=== PATIENT | male | born 1940 | race Two or more races ===

== ENCOUNTER 2024-07-31 21:58 | Inpatient (IN) | payer OTHER, MEDICAID ==
[~2024-07-31] VITALS: Ht 175.3 cm; Wt 69.8 kg
[2024-07-31] MEDS: SODIUM CHLORIDE 0.9% 1,000 ML IV ONE (01:00)
[2024-07-31 22:52] LABS: Basophils # (auto) 0 10 ^3/uL (0-0.2); Basophils % (auto) 0.5 % (0.0-2.0); Eosinophils # (auto) 0.4 10 ^3/uL (0-0.8); Eosinophils % (auto) 4.6 % (0.0-7.0); Hematocrit 37.9 % (41.0-53.0); Hemoglobin 13.1 g/dL (13.5-17.5); Lymphocytes # (auto) 2.4 10 ^3/uL (0.4-5.4); Lymphocytes % (auto) 31.6 % (10.0-50.0); Mean Corpuscular Hemoglobin 33.3 pg (28.0-32.0); Mean Corpuscular Hgb Conc. 34.6 g/dL (32.0-36.0); Mean Corpuscular Volume 96.3 fL (80.0-100.0); Monocytes # (auto) 0.5 10 ^3/uL (0-1.3); Neutrophils # (auto) 4.4 10 ^3/uL (1.6-8.6); Neutrophils % (auto) 57.3 % (37.0-80.0); Platelet Count (auto) 171 10^3/uL (140-450); Red Blood Cells 3.94 10^6/uL (4.5-5.90); Red Cell Distribution Width 13.6 % (11.8-14.3); White Blood Cell 7.7 10^3/uL (4.4-10.8)
[2024-07-31 23:01] LABS: Chloride 109 mmol/L (98-107); Potassium 4.7 mmol/L (3.5-5.1); Sodium 136 mmol/L (136-145)
[2024-07-31 23:02] LABS: Anion Gap 15 (5-15); Calcium 9.9 mg/dL (8.7-10.4); Carbon Dioxide 12 mmol/L (20-30)
[2024-07-31 23:07] LABS: BUN/Creatinine Ratio 32.6 (10.0-20.0); Blood Urea Nitrogen 42 mg/dL (9-23); Glucose 103 mg/dL (74-106)
[2024-07-31 23:20] LABS: Lactic Acid w/Reflex 5.7 mmol/L (0.4-2.0)
[2024-08-01] MEDS: SODIUM CHLORIDE 0.9% 1,000 ML IV ONE (04:01)
[2024-08-01] MEDS: VANCOMYCIN 1GM/200ML 200 ML IV ONE (04:02)
[2024-08-01 04:27] LABS: Urine Bacteria None Seen /hpf (None Seen)
[2024-08-01 04:38] LABS: Urine Blood Negative /uL (Negative); Urine Clarity Clear (Clear); Urine Color Light-Yellow (Yellow); Urine Protein, UAD Negative (Negative); Urine Specific Gravity 1.018 (1.001-1.035); Urine Urobilinogen Normal (Negative); Urine WBC 1 /hpf (0 - 3)
[2024-08-01 06:29] VITALS: PULSE 89; RESP 16; O2SAT 96
[2024-08-01] MEDS ORDERED: DEXTROSE (50%) 50ML SYRG IV PRN (07:45)
[2024-08-01] MEDS ORDERED: ACETAMINOPHEN 325 MG TAB PO PRN (07:45)
[2024-08-01] MEDS ORDERED: ONDANSETRON HCL 4 MG/2 ML VIAL IV PRN (07:45)
[2024-08-01] MEDS: cefTRIAXone 1GM/50ML D5W 50 ML IV SCH (09:00)
[2024-08-01 10:00] VITALS: PULSE 82; RESP 18; O2SAT 95
[2024-08-01] MEDS: MEMANTINE HCL 5 MG TAB PO SCH (10:00)
[2024-08-01] MEDS: ENOXAPARIN SOD 40 MG/0.4 ML SYRINGE SC SCH (10:00)
[2024-08-01] MEDS: InsuLIN REG 1unit/0.01ml Soln (100units/ml) SC SCH (11:30)
[2024-08-01] MEDS: ACCU-CHEK COMFORT CURVE STRIP VI SCH (12:10)
[2024-08-01] MEDS: LACTATED RINGER'S 1,000 ML IV SCH (16:52)
[2024-08-01] MEDS: TAMSULOSIN HYDROCHLORIDE 0.4 MG CAP PO SCH (18:06)
[2024-08-01 19:40] VITALS: PULSE 76; RESP 18; O2SAT 98
[2024-08-01] MEDS: DONEPEZIL HYDROCHLORIDE 5 MG TAB PO SCH (22:12)
[2024-08-01] MEDS: ATORVASTATIN 20 MG TAB PO SCH (22:12)
[2024-08-02 06:03] LABS: Basophils # (auto) 0 10 ^3/uL (0-0.2); Basophils % (auto) 0.6 % (0.0-2.0); Eosinophils # (auto) 0.5 10 ^3/uL (0-0.8); Eosinophils % (auto) 6.6 % (0.0-7.0); Hematocrit 35.9 % (41.0-53.0); Hemoglobin 12.8 g/dL (13.5-17.5); Lymphocytes # (auto) 2.3 10 ^3/uL (0.4-5.4); Lymphocytes % (auto) 30.5 % (10.0-50.0); Mean Corpuscular Hemoglobin 33.6 pg (28.0-32.0); Mean Corpuscular Hgb Conc. 35.5 g/dL (32.0-36.0); Mean Corpuscular Volume 94.7 fL (80.0-100.0); Monocytes # (auto) 0.4 10 ^3/uL (0-1.3); Monocytes % (auto) 5.7 % (0.0-12.0); Neutrophils # (auto) 4.3 10 ^3/uL (1.6-8.6); Neutrophils % (auto) 56.6 % (37.0-80.0); Platelet Count (auto) 159 10^3/uL (140-450); Red Cell Distribution Width 13.1 % (11.8-14.3); White Blood Cell 7.6 10^3/uL (4.4-10.8)
[2024-08-02 06:07] LABS: Anion Gap 7 (5-15); Carbon Dioxide 22 mmol/L (20-30); Chloride 109 mmol/L (98-107); Potassium 3.9 mmol/L (3.5-5.1); Sodium 138 mmol/L (136-145)
[2024-08-02 06:08] LABS: Calcium 9.5 mg/dL (8.7-10.4)
[2024-08-02 06:13] LABS: BUN/Creatinine Ratio 27.3 (10.0-20.0); Glucose 87 mg/dL (74-106)
[2024-08-02 06:18] LABS: Blood Urea Nitrogen 24 mg/dL (9-23)
[2024-08-02] MEDS: LEVOTHYROXINE SODIUM 25 MCG TAB PO SCH (06:39)
[2024-08-02 13:38] VITALS: PULSE 85; RESP 18; O2SAT 95
[2024-08-03 07:30] VITALS: PULSE 97; RESP 14; O2SAT 98
[2024-08-03 10:05] VITALS: PULSE 99; RESP 18; O2SAT 98
[2024-08-03 10:15] VITALS: BP 150/81; PULSE 99; RESP 18; TEMP 98.5; O2SAT 98
[2024-08-03] MEDS ORDERED: MEGE40TA4 PO (12:12)
[2024-08-03] MEDS ORDERED: LIOT5TAB31 PO (12:12)
[2024-08-03] MEDS ORDERED: MEMA1TAB5 PO (12:12)
[2024-08-03] MEDS ORDERED: DONE1TAB88 PO (12:20)
[2024-08-03] MEDS ORDERED: METF-370 PO (12:20)
[2024-08-03] MEDS ORDERED: TRAZ-227 PO (12:20)
[2024-08-03] MEDS ORDERED: PIOG1TAB37 OR (12:20)
[2024-08-03] MEDS ORDERED: TAMS0.4C39 PO (12:20)
[2024-08-03] MEDS ORDERED: OMEP20TA PO (12:20)
[2024-08-03] MEDS ORDERED: LOVA20TA4 PO (12:20)
[2024-08-03] MEDS ORDERED: CANA300T OR (12:20)
[2024-08-03] MEDS ORDERED: LEVO25TA6 PO (12:20)
[2024-08-03 17:06] VITALS: BP 103/70; PULSE 101; RESP 18; TEMP 98.2; O2SAT 96
[2024-08-03 20:00] VITALS: PULSE 85; RESP 18; O2SAT 98
[2024-08-03 21:00] VITALS: BP 95/63; PULSE 104; RESP 18; TEMP 98.9; O2SAT 98
[2024-08-04] VITALS (8 sets, daily range): BP systolic 106–142; BP diastolic 56–83; PULSE 81–102; RESP 14–18; TEMP 98.1–98.7; O2SAT 96–98
[2024-08-05] VITALS (8 sets, daily range): BP systolic 105–143; BP diastolic 48–77; PULSE 88–106; RESP 17–20; TEMP 98.1–99.2; O2SAT 97–99
[2024-08-06] VITALS (8 sets, daily range): BP systolic 98–137; BP diastolic 62–86; PULSE 79–106; RESP 16–20; TEMP 97.7–98.8; O2SAT 94–100
[2024-08-06 10:10] LABS: COVID19 ANTIGEN SOFIA FIA NEGATIVE (NEGATIVE)
== END 2024-08-06 21:58 | DRG 871 ==
LOC: ER 21:58 → CENTRAL 08-01 07:41 → OVERFLOW 08-01 07:41 → CENTRAL 08-03 10:10
PROVIDERS: ADMIT Nurse Practitioner; ATTEND Family Medicine
DX: A41.9 Sepsis, unspecified organism (principal); E43 Unspecified severe protein-calorie malnutrition; G93.41 Metabolic encephalopathy; E87.21 Acute metabolic acidosis; N39.0 Urinary tract infection, site not specified; L03.317 Cellulitis of buttock; L98.418 Non-pressure chronic ulcer of buttock with other specified severity; R62.7 Adult failure to thrive; F03.90 Unspecified dementia, unspecified severity, without behavioral disturbance, psychotic disturbance, mood disturbance, and anxiety; E78.00 Pure hypercholesterolemia, unspecified; E03.9 Hypothyroidism, unspecified; E86.0 Dehydration; N47.6 Balanoposthitis; E11.622 Type 2 diabetes mellitus with other skin ulcer; N40.1 Benign prostatic hyperplasia with lower urinary tract symptoms; N39.498 Other specified urinary incontinence; Z79.4 Long term (current) use of insulin; Z79.899 Other long term (current) drug therapy; Z68.21 Body mass index [BMI] 21.0-21.9, adult
CPT/HCPCS: 36415; 71045; 76775; 80048; 81001; 82962; 83605; 85025; 87040; 87086; 87426; 97163; G0378; J1815

== ENCOUNTER 2025-08-12 13:57 | Inpatient (IN) | payer OTHER, MEDICAID ==
[~2025-08-12] VITALS: Ht 165.1 cm; Wt 72.5 kg
[~2025-08-12 13:57] MED LIST: CANA300T OR; DONE1TAB88 PO; LEVO25TA6 PO; LIOT5TAB31 PO; LOVA20TA4 PO; MEGE40TA4 PO; MEMA1TAB5 PO; METF-370 PO; OMEP20TA PO; PIOG1TAB37 OR; TAMS0.4C39 PO; TRAZ-227 PO
--- NOTE | 2025-08-12 14:29 | ED.PDOC ---
History of Present Illness HPI Comments 85 year old male with a PMHx of Dementia, HLD, Thyroid disease, BPH, presents to the ED via EMS with a chief complaint of generalized weakness onset 3 days. Per EMS, patient was recently discharged from [facility], with diagnosis of pneumonia adn COVID. Patient was discharged on 08/06/25, with treatment. Family noticed for the past 3 days, patient has poor appetite, poor fluid intake, generalized weakness and cough have worsen. No other symptoms or modifying factors present at this time. Chief Complaint: General Weakness Time Seen by MD: 14:15 Reviewed Notes: Medications, Allergies Allergies: Coded Allergies: NO KNOWN ALLERGIES (Unverified , 07/31/24) Home Meds Reported Medications Pioglitazone Hydrochloride (PIOGLITAZONE HCL) 30 Mg Tab, 30 MG OR QPM, TAB 08/03/24 Trazodone Hcl (Trazodone Hcl) 50 Mg Tab, 50 MG PO QPM, MG 08/03/24 Omeprazole (Gnp Omeprazole) 20 Mg Tab, 20 MG PO QPM, TAB 08/03/24 Donepezil Hydrochloride (DONEPEZIL HCL) 10 Mg Tab, 10 MG PO QPM for 30 Days, MG 08/03/24 Lovastatin (Lovastatin) 20 Mg Tab, 1 TAB PO DAILY, #30 TAB 5 Refills 08/03/24 Metformin Hydrochloride (Metformin Hcl) 500 Mg Tab, 1000 MG PO BID for 30 Days, MG 08/03/24 Canagliflozin (INVOKANA) 300 Mg Tab, 300 MG OR DAILY, TAB 08/03/24 Tamsulosin Hcl (Tamsulosin Hcl) 0.4 Mg Cap, 0.4 MG PO QPM for 30 Days, MG 08/03/24 Levothyroxine Sodium (Levothyroxine Sodium) 25 Mcg Tab, 25 MCG PO QAM, MCG 08/03/24 Megestrol Acetate (Megestrol Acetate) 40 Mg Tab, 40 MG PO DAILY 08/03/24 Memantine Hydrochloride (Memantine HCl) 10 Mg Tab, 10 MG PO BID, TAB 08/03/24 Liothyronine Sodium (Liothyronine Sodium) 5 Mcg Tab, 5 MCG PO BID, TAB 08/03/24 Information Source: Patient, Emergency Med Personnel Mode of Arrival: EMS Severity: Moderate Timing: Days Duration: Since onset Prehospital treatment: None Past Medical History PAST MEDICAL HISTORY: Dementia, High Lipids Surgical History: Denies all surgeries Family History Family History: Reviewed,noncontributory to illness, No family hx of Cancer, No family hx of DM, No family hx of Heart eliza, No family hx of HTN, No family hx ofKidney eliza, No family hx of Liver eliza, No family hx of Lung eliza, No family hx of Stroke Social History Smoker: Non-Smoker Alcohol: Denies ETOH Use Drugs: Denies Drug Use Lives In: Home Constitutional: reports: weakness; denies: chills, diaphoresis, fatigue, fever, malaise, sweats, others EENTM: denies: blurred vision, double vision, ear bleeding, ear discharge, ear drainage, ear pain, ear ringing, eye pain, eye redness, hearing loss, mouth pain, mouth swelling, nasal discharge, nose bleeding, nose congestion, nose pain, photophobia, tearing, throat pain, throat swelling, voice changes, others Respiratory: reports: cough; denies: hemoptysis, orthopnea, SOB at rest, shortness of breath, SOB with excertion, stridor, wheezing, others Cardiovascular: denies: chest pain, dizzy spells, diaphoresis, Dyspnea on exertion, edema, irregular heart beat, left arm pain, lightheadedness, palpitations, PND, syncope, others Gastrointestinal: reports: poor appetite, poor fluid intake; denies: abdomen distended, abdominal pain, blood streaked bowels, constipated, diarrhea, dysphagia, difficulty swallowing, hematemesis, melena, nausea, rectal bleeding, rectal pain, vomiting, others Genitourinary: denies: burning, dysuria, flank pain, frequency, hematuria, incontinence, penile discharge, penile sore, pain, testicle pain, testicle swelling, urgency, others Neurological: reports: weakness; denies: dizziness, fainting, headache, left sided numbness, left sided weakness, numbness, paresthesia, pre-existing deficit, right sided numbness, right sided weakness, seizure, speech problems, tingling, tremors, others Musculoskeletal: denies: back pain, gout, joint pain, joint swelling, muscle pain, muscle stiffness, neck pain, others Integumetry: denies: bruises, change in color, change in hair/nails, dryness, laceration, lesions, lumps, rash, wounds, others Allergic/Immunocompromised: denies: Difficulty Healing, Frequent Infections, Hives, Itching, others Hematologic/Lymphatic: denies: anemia, blood clots, easy bleeding, easy bruising, swollen glands, others Endocrine: denies: excessive hunger, excessive sweating, excessive thirst, excessive urination, flushing, intolerance to cold, intolerance to heat, unexp lained weight gain, unexplained weight loss, others Psychiatric: denies: anxiety, bipolar disorder, depression, hopeless, panic disorder, schizophrenia, sleepless, suicidal, others All Other Systems: Reviewed and Negative Physical Exam General Appearance: Moderate Distress, Normal HEENT: Normal ENT Inspection, Pharynx Normal, TMs Normal Neck: Full Range of Motion, Non-Tender, Normal, Normal Inspection Respiratory: Chest Non-Tender, Lungs Clear, No Accessory Muscle Use, No Respiratory Distress, Normal Breath Sounds, Other (Coarse breath sounds) Cardiovascular: No Edema, No JVD, No Murmur, No Gallop, Normal Peripheral Pulses, Tachycardia Breast Exam: Deferred Gastrointestinal: No Organomegaly, Non Tender, No Pulsatile Mass, Normal Bowel Sounds, Soft Genitalia: Deferred Pelvic: Deferred Rectal: Deferred Extremities: No calf tenderness, Normal capillary refill, Non-tender, No pedal edema Musculoskeletal : Apperance: Normal Neurologic: Alert, refuse laborer II-XII nml as Tested, No Motor Deficits, Normal Affect, Normal Mood, No Sensory Deficits Cerebellar Function: NOT DONE Reflexes: NOT DONE Skin: Dry, Normal Color, Warm Peripheral Pulses: 3+ Radial (R), 3+ Radial (L) Lymphatic: No Adenopathy Was a procedure done? Was a procedure done?: No EKG EKG : Pulse Rate (adult): 125 Cardiac Rhythm: ST Differential Dx Considerations may include: Pneumonia Electrolyte imbalance X-Ray, Labs, Meds, VS Vital Signs Date Time Temp Pulse Resp B/P (MAP) Pulse Ox O2 Delivery O2 Flow Rate FiO2 08/12/25 14:29 125 08/12/25 14:17 97.0 112 18 112/78 100 97.0 08/12/25 14:09 125 Patient alert. Complaining of generalized weakness. Recently discharged from this hospital. Tachycardia. Saturation pristine on room air. Still has a pneumonia. Was given Rocephin. Was given azithromycin. Reviewed his previous visit. Continue to monitor. Time of 1ST Reevaluation: 14:45 Reevaluation 1ST: Unchanged Patient Education/Counseling: Diagnosis, Treatment, Prognosis Family Education/Counseling: No Family Present SEPSIS Sepsis Screen Date sepsis recognized/suspect: Aug 12, 2025 Time Sepsis recognized/suspect: 4 Recent Procedure: No On Antibiotic Therapy: No Respiratory Rate >20: No Heart Rate >90: Yes Temp<36 C (96.8 F) or >38.3 C: No SBP <90 or MAP <65 mmHG: No New Acute Mental Status Change: No Is the patient on CPAP, BIPAP,: No Physician Orders Electrocardigram (08/12/25 14:29) Troponin-I Hs (08/12/25 15:05) Complete Blood Count (08/12/25 15:05) Chest Portable (08/12/25 15:05) Urinalysis (08/12/25 15:05) Basic Metabolic Panel (08/12/25 15:05) Blood Culture (08/12/25 15:05) Lactic Acid W/ Reflex Order (08/12/25 15:05) Azithromycin 500mg/ 250ml (Zithromax 50 (08/12/25 15:15) Ceftriaxone 1gm/50ml (Rocephin) (08/12/25 15:15) Vital Signs Date Time Temp Pulse Resp B/P (MAP) Pulse Ox O2 Delivery O2 Flow Rate FiO2 08/12/25 14:29 125 08/12/25 14:17 97.0 112 18 112/78 100 97.0 08/12/25 14:09 125 Departure 1 Departure Time of Disposition: 15:13 Impression: Primary Impression: Pneumonia Qualified Codes: J18.9 - Pneumonia, unspecified organism Additional Impression: Generalized weakness Disposition: ADMITTED INPATIENT Admit to: Med Surg Condition: Guarded Critical Care Note Critical Care Time?: No Stability Stability form required: No Heart Score Heart Score: Heart Score Response (Comments) Value History Slightly Suspicious 0 EKG Normal 0 Age >65 2 Risk Factors >3 or Hx ASHD 2 Troponin Normal limit 0 Total 4 I personally scribed for KERLINE ORTEGA MD ([email or web address]) on 08/12/25 at 14:29. Electronically submitted by Crystal Will ([email or web address]). KERLINE ORTEGA MD Aug 12, 2025 14:29
[2025-08-12] MEDS: AZITHROMYCIN 500MG/ 250ML 250 ML IV ONE ×2 (15:15→15:56)
[2025-08-12 15:52] LABS: Hematocrit 35.8 % (41.0-53.0); Hemoglobin 12.3 g/dL (13.5-17.5); Mean Corpuscular Hemoglobin 31.9 pg (28.0-32.0); Mean Corpuscular Volume 92.5 fL (80.0-100.0); Nucleated Red Blood Cells % 0.1 %
[2025-08-12 15:58] LABS: Chloride 106 mmol/L (98-107); Potassium 4.6 mmol/L (3.5-5.1); Sodium 138 mmol/L (136-145)
[2025-08-12 15:59] LABS: Anion Gap 15 (5-15)
--- NOTE | 2025-08-12 15:59 | DVH ---
CHEST RADIOGRAPH Indication: sob Technique: Single frontal view of the chest was obtained Comparison: XY CHEST PORTABLE on DOS: 07/31/24 FINDINGS: Lines and Tubes: None Lungs: Prominent bilateral interstitial markings. Acute versus chronic disease can not be distinguis hed without comparison films Pleura: No effusion. No pneumothorax. Cardiomediastinal contours: Unremarkable Bones: No acute osseous abnormality. IMPRESSION: 1. Prominent bilateral interstitial markings. 2. Acute versus chronic disease can not be distinguished without comparison films.
[2025-08-12 16:00] LABS: Calcium 8.8 mg/dL (8.7-10.4)
[2025-08-12 16:03] LABS: Carbon Dioxide 17 mmol/L (20-31)
[2025-08-12 16:05] LABS: BUN/Creatinine Ratio 18.2 (10.0-20.0); Blood Urea Nitrogen 16 mg/dL (9-23); Glucose 152 mg/dL (74-106)
[2025-08-12 16:08] LABS: Lactic Acid w/Reflex 4.8 mmol/L (0.4-2.0)
[2025-08-12] MEDS: SODIUM CHLORIDE 0.9% 1,000 ML IV ONE ×2 (16:15→16:36)
[2025-08-12] MEDS: CLINDAMYCIN 300MG IV 50 ML IV ONE ×2 (16:36→16:38)
[2025-08-12] MEDS: PIPERACILLIN-TAZOB 3.375GM 100 ML IV ONE ×2 (16:36→16:38)
--- NOTE | 2025-08-12 19:31 | ECG ---
[facility] Test Date: 2025-08-12 Test Time: 14:09:04 Pat Name: LOVE LIN Department: Room: 0278T Gender: M Sprue Knocker: ANTOINETTE : 1940 Requested By: KERLINE ORTEGA Order Number: [id number] Reading MD: Mihir Elise Measurements Intervals Strawn Rate: 125 P: 39 DC: 130 QRS: -51 QRSD: 108 T: 30 QT: 330 QTc: 476 Interpretive Statements Sinus tachycardia Consider RVH w/ secondary repol abnormality Inferior infarct, old Electronically Signed On 08-14-2025 9:54:32 PDT by Mihir Elise Please click the below link to view image of tracing.
[2025-08-12 23:00] VITALS: PULSE 90; RESP 14; O2SAT 97
[2025-08-13] VITALS (10 sets, daily range): BP systolic 108–122; BP diastolic 63–77; PULSE 78–94; RESP 15–99; TEMP 98–98.6; O2SAT 96–100
[2025-08-13 00:48] LABS: COVID19 ANTIGEN SOFIA FIA NEGATIVE (NEGATIVE)
[2025-08-13] MEDS ORDERED: VANCOMYCIN PER PHARMACY 0 MG IV SCH (01:45)
[2025-08-13] MEDS ORDERED: DEXTROSE (50%) 50ML SYRG IV PRN (01:45)
[2025-08-13] MEDS ORDERED: VANCOMYCIN 1GM/250ML KIT 250 ML IV ONE (01:45)
[2025-08-13] MEDS ORDERED: ALBUTEROL SULF 2.5 MG/0.5ML(0.5%) NEB SOLN NEB PRN (01:45)
--- NOTE | 2025-08-13 02:23 | DVH ---
Exam: CT CHEST WITHOUT CONTRAST History: sob Comparison Study: Previous study chest radiograph Technique: Multidetector spiral CT of the chest, abdomen and pelvis was performed from lower neck to pubic symphysis Axial, coronal and sagittal multiplanar reformats were performed by the technologist on a separate workstation. Radiation Dose : 1. Chest/Abdomen/Pelvis: CTDIvol 14.58 mGy, DLP 529.28 mGy*cm. Findings: Lower neck: Unremarkable. Lungs: No evidence of acute consolidation. Significant bronchiectasis in the right lower greater than upper and middle lobes with interspersed areas of decreased caliber and numerous small nodules. Mini mal bronchiectasis in the left lower lobe. Heart/Vascular Structures: Normal heart size. Upper normal volume of pericardial fluid. Lymph Nodes: No obvious adenopathy. Pleura: No pleural effusion or significant pneumothorax. Upper abdomen: 3.7 cm cystic lesion in the spleen. Cirrhotic hepatic morphology. Cholecystectomy. Ex ophytic right renal cyst. Musculoskeletal: No evidence of acute fracture. Advanced degenerative changes of the spine with imag ing features of DISH. Severe bilateral shoulder osteoarthrosis. IMPRESSION: 1. Marked irregular bronchiectasis involving the right lung and to a lesser extent the left lower lob e, with mixed features including cylindrical, varicose and cystic appearance. The appearances most li tushar chronic with broad differential considerations. Outpatient pulmonology consultation is recommen ded. 2. No evidence of acute infectious consolidation or lymphadenopathy. 3. Incompletely characterized splenic 3.7 cm cystic lesion as well as cirrhotic hepatic morphology, o utpatient follow-up to include consideration for abdomen MRI. Other chronic and incidental findings raymon rodriguez.
[2025-08-13] MEDS ORDERED: ACETAMINOPHEN 325 MG TAB PO PRN (02:30)
[2025-08-13] MEDS ORDERED: DOCUSATE SOD 100 MG CAP PO PRN (02:30)
[2025-08-13] MEDS ORDERED: NITROGLYCERIN 0.4 MG SL TAB SL PRN (02:30)
[2025-08-13] MEDS ORDERED: MORPHINE SULFATE INJ 2 MG/ml SYRG IV PRN ×2 (02:30)
[2025-08-13] MEDS ORDERED: ONDANSETRON HCL 4 MG/2 ML VIAL IV PRN (02:30)
[2025-08-13] MEDS: SODIUM CHLORIDE 0.9% 500 ML IV ONE (03:16)
[2025-08-13] MEDS: methylPREDNISolone SOD SUCC 40 MG/ML VL IV ONE (03:16)
[2025-08-13] MEDS: NYSTATIN (MOUTH-THROAT) 500,000 UNITS/5 ML SUSP MT ONE (03:16)
[2025-08-13] MEDS: PIPERACILLIN-TAZO 4.5GM 100 ML IV ONE (03:17)
[2025-08-13] MEDS: ACCU-CHEK COMFORT CURVE STRIP VI SCH (04:00)
[2025-08-13] MEDS: InsuLIN REG 1unit/0.01ml Soln (100units/ml) SC SCH (04:00)
[2025-08-13] MEDS: VANCOMYCIN 1.75GM/350ML 350 ML IV ONE (05:02)
--- NOTE | 2025-08-13 05:15 | DVHHPRES ---
History of Present Illness Resident Creating Document: PATRICK CRONIN RESIDENT Reason for Visit: Generalized weakness, poor oral intake, cough, chest pain History of Present Illness This is an 85-year-old male with a significant past medical history of dementia, hyperlipidemia, hypothyroidism, benign prostatic hyperplasia, chronic sacral pressure ulcer, complicated urinary tract infections, urinary incontinence, and prior COVID pneumonia. He presents today via EMS for progressive generalized weakness and poor appetite/PO intake for 3 days, associated with cough, chest discomfort, and dyspnea. Family reports tachycardia (HR up to 135 bpm), low-normal BP (100/69), and intermittent agitation at home. He has also experienced fatigue, decreased strength (described as like a noodle), and worsening mobility in the past month. He was recently hospitalized: * Jul 17, 2025 [facility] for community-acquired pneumonia, pancreatic insufficiency, cirrhosis, COPD/asthma, and Alzheimers dementia. Treated with 7 days of antibiotics. * Jul 31, 2025 [facility] with worsening cough/dyspnea, diagnosed with COVID pneumonia. Treated with remdesivir, steroids, nebulizers, mucolytics, and antibiotics. Discharged home stable without O? requirement. * Aug 06, 2024 [facility] (last year) admitted for pneumonia and COVID, discharged to SNF. In the ED today: * [place]: [place] 25[address] (up to 133 at home), BP 100/66, RR 14, SpO? 97% RA, T afebrile. * Labs: * WBC 7.4 (normal) * Hgb 12.3 (mild anemia) * Hct 36.8 * RBC 3.87 (low) * CO? 17 (low), Anion gap 15 ? mild high anion gap metabolic acidosis * BUN 16 / Cr 0.88 (normal renal function, GFR 85) * Glucose 152 * Lactic acid 4.8 ? 4.4 (elevated, concern for sepsis/hypoperfusion) * Troponin negative (17) * Imaging: CXR with prominent bilateral interstitial markings, acute vs chronic disease undistinguishable. * Treatment: Received NS 1L bolus, followed by 1L NS @ 150 mL/hr. Summary:?Elderly male with dementia and multiple comorbidities, recent COVID pneumonia, presenting with weakness, poor oral intake, cough, tachycardia, metabolic acidosis, and elevated lactate concerning for sepsis of pulmonary vs urinary Past Medical History * Dementia (Alzheimers, stage 3) * Hyperlipidemia * Hypothyroidism (on levothyroxine + liothyronine) * Benign prostatic hyperplasia * Chronic sacral pressure ulcer (hx of stage IIIIV) * Complicated recurrent UTIs * Pancreatic insufficiency * COPD/asthma * Cirrhosis (medication-induced) * Type 2 diabetes mellitus Afib Past Surgical History NONE Family History * Mother with stroke and heart disease. * No known family cancer history. Past Social History * Lives with daughter and family (primary caregiver). * Non-smoker, no alcohol use, no illicit drug use. * Requires assistance with ADLs, ambulates short distances with walker + wheelchair. Review of Systems Review of Systems * Constitutional: Weakness, fatigue, poor PO intake, weight loss denied, no fever/chills. * HEENT: No headache, no sore throat. * Cardiac: Tachycardia, chest discomfort. No palpitations reported by patient (daughter noted at home). * Respiratory: Cough (productive with difficulty expectorating, swallows sputum), dyspnea. * GI: Diarrhea from lactulose. No N/V. * : Urinary incontinence, no dysuria, no hematuria. * Skin: Chronic sacral ulcer scar, no new drainage noted by family. * Neuro: Dementia baseline (stage 3), alert and talkative, no delirium. * MSK: Weakness, deconditioning, minimal ambulation with assistance. Allergies: Coded Allergies: Azithromycin (Verified Allergy, Severe, 08/12/25) Medications Current Medications Medications Dose Ordered Sig/Alexandru Route Start Time Stop Time Status Last Admin Dose Admin Albuterol 2.5 mg Q4HPRN PRN NEB 08/13/25 01:45 Vancomycin HCl 0 ml @ 0 mls/hr UD IV 08/13/25 01:45 UNV Piperacillin Sod/ Tazobactam Sod 100 ml @ 25 mls/hr Q8HR IV 08/13/25 06:00 Diagnostic Test (Pha) 1 strip IQ4HR 08/13/25 04:00 08/13/25 04:00 1 STRIP Insulin Human Regular IQ4HR SC 08/13/25 04:00 Dextrose 50 ml UD PRN IV 08/13/25 01:45 Ondansetron HCl 4 mg Q4HP PRN IV 08/13/25 02:30 Docusate Sodium 100 mg BIDPRN PRN PO 08/13/25 02:30 Multivitamins 1 tab DAILY PO 08/13/25 10:00 Acetaminophen 650 mg Q6HP PRN PO 08/13/25 02:30 Morphine Sulfate 2 mg Q4HPRN PRN IV 08/13/25 02:30 Nitroglycerin 0.4 mg Q5MINP PRN SL 08/13/25 02:30 Morphine Sulfate 2 mg Q30M PRN IV 08/13/25 02:30 Exam Vital Signs Vital Signs Date Time Temp Pulse Resp B/P (MAP) Pulse Ox O2 Delivery O2 Flow Rate FiO2 08/13/25 04:00 98 12 101/54 (70) 97 08/13/25 02:17 Room Air* 0 21 21 08/13/25 02:17 98.6 98.6 Exam * General: Elderly male, alert, mildly agitated, appears weak and frail. * HEENT: Mucous membranes dry. No thrush. * Neck: No JVD, no lymphadenopathy. * Cardiac: Tachycardic, regular, no murmurs. * Lungs: Bilateral crackles at bases, diminished air entry. No wheezing. * Abdomen: Soft, non-tender, nondistended, normoactive BS. * : Incontinent, no suprapubic tenderness. * Skin: Healed sacral ulcer scar, no new drainage/erythema. No rashes. * Neuro: Oriented to self, place, and month; mild baseline dementia. No focal deficits. * Extremities: No edema, good pulses. Labs/Xrays Labs Test 08/13/25 04:53 08/13/25 02:20 08/12/25 23:20 08/12/25 15:33 Range/Units POC Glucose 102 70-106 mg/dl Lactic Acid Level 1.4 0.4-2.0 mmol/L B-Type Natriuretic Peptide 81.66 0-100 pg/mL Influenza Type A Antigen Negative Negative Influenza Type B Antigen Negative Negative SARS-CoV-2 Antigen (Rapid) Negative NEGATIVE White Blood Count 7.4 4.4-10.8 10^3/uL Red Blood Count 3.87 L 4.5-5.90 10^6/uL Hemoglobin 12.3 L 13.5-17.5 g/dL Hematocrit 35.8 L 41.0-53.0 % Mean Corpuscular Volume 92.5 80.0-100.0 fL Mean Corpuscular Hemoglobin 31.9 28.0-32.0 pg Mean Corpuscular Hemoglobin Concent 34.4 32.0-36.0 g/dL Red Cell Distribution Width 15.0 H 11.8-14.3 % Platelet Count 115 L 140-450 10^3/uL Mean Platelet Volume 10.6 6.9-10.8 fL Neutrophils (%) (Auto) 76.6 37.0-80.0 % Lymphocytes (%) (Auto) 14.7 10.0-50.0 % Monocytes (%) (Auto) 5.7 0.0-12.0 % Eosinophils (%) (Auto) 2.5 0.0-7.0 % Basophils (%) (Auto) 0.5 0.0-2.0 % Neutrophils # (Auto) 5.7 1.6-8.6 10 ^3/uL Lymphocytes # (Auto) 1.1 0.4-5.4 10 ^3/uL Monocytes # (Auto) 0.4 0-1.3 10 ^3/uL Eosinophils # (Auto) 0.2 0-0.8 10 ^3/uL Basophils # (Auto) 0 0-0.2 10 ^3/uL Nucleated Red Blood Cells 0.1 % Sodium Level 138 136-145 mmol/L Potassium Level 4.6 3.5-5.1 mmol/L Chloride Level 106 98-107 mmol/L Carbon Dioxide Level 17 L 20-31 mmol/L Anion Gap 15 5-15 Blood Urea Nitrogen 16 9-23 mg/dL Creatinine 0.88 0.700-1.30 mg/dL Glomerular Filtration Rate Calc 85 >90 mL/min BUN/Creatinine Ratio 18.2 10.0-20.0 Serum Glucose 152 H 74-106 mg/dL Calcium Level 8.8 8.7-10.4 mg/dL Troponin I High Sensitivity 17 </=54 ng/L SEPSIS Sepsis Screen Date sepsis recognized/suspect: Aug 12, 2025 Time Sepsis recognized/suspect: 2299 Recent Procedure: No On Antibiotic Therapy: Yes Respiratory Rate >20: No Heart Rate >90: No Temp<36 C (96.8 F) or >38.3 C: No SBP <90 or MAP <65 mmHG: No New Acute Mental Status Change: No Is the patient on CPAP, BIPAP,: No Physician Orders Urinalysis (08/13/25 01:34) Blood Culture (08/13/25 01:34) Respiratory Culture W/ Gs (08/13/25 01:34) Chest Without Contrast (08/13/25 01:34) Albuterol Medneb (Ventolin Medneb) (08/13/25 01:45) Vancomycin Per Pharmacy (08/13/25 01:45) Piperacillin-Tazob 3.375gm (Zosyn 3.375g (08/13/25 06:00) Clear Liq Diet (08/13/25 Breakfast) Glucose Blood (Accu-Chek Comfort Curve T (08/13/25 04:00) Insulin R (Human) (Insulin R) (08/13/25 04:00) Dextrose 50% Syringe (08/13/25 01:45) Sequential Compression Device (08/13/25 01:34) Admit (08/13/25 02:27) Allergies (08/13/25 02:27) Code Status (08/13/25 02:27) Oxygen Per Hour (08/13/25 02:27) Ondansetron Hcl (Zofran) (08/13/25 02:30) Docusate Sodium Capsule (Colace Capsule) (08/13/25 02:30) Multiple Vitamin Tablet (Mvi Tab) (08/13/25 10:00) Fall Risk Precautions In Place QSHIFT (08/13/25 02:27) Complete Blood Count (08/14/25 04:00) Comprehensive Metabolic Panel (08/14/25 04:00) Pt Request For Service (08/13/25 02:27) * Swallow Request (08/13/25 02:27) Condition: Serious (08/13/25 02:27) Acetaminophen Tablet (Tylenol Tablet) (08/13/25 02:30) Morphine Sulfate Injection (08/13/25 02:30) Nitroglycerin Sublingual (Ntrostat Subli (08/13/25 02:30) Morphine Sulfate Injection (08/13/25 02:30) Oxygen By Nasal Cannula (08/13/25 02:27) Stat Ekg For Chest Pain (08/13/25 02:27) Notify Md Of Changes From Base (08/13/25 02:27) Store Sales Manager For 24 Hours (08/13/25 02:27) Emergency Dysrhythmia Protocol (08/13/25 02:27) Rhythm Strips Once Every Shift (08/13/25 02:27) Vital Signs Date Time Temp Pulse Resp B/P (MAP) Pulse Ox O2 Delivery O2 Flow Rate FiO2 08/13/25 04:00 98 12 101/54 (70) 97 08/13/25 03:00 102 17 88/65 (73) 97 08/13/25 02:17 99 Room Air* 0 21 21 08/13/25 02:17 98.6 90 18 110/66 99 0.0 21 98.6 08/13/25 02:17 99 Room Air 0.0 08/13/25 01:00 102 14 99/57 (71) 98 08/12/25 23:00 90 14 97 Room Air* 0 21 08/12/25 23:00 98.6 90 14 110/66 (81) 97 98.6 Laboratory Tests Test 08/12/25 17:59 08/13/25 02:20 Lactic Acid Level 4.4 mmol/L (0.4-2.0) *H 1.4 mmol/L (0.4-2.0) Medications Medications Dose Ordered Sig/Alexandru Route Start Time Stop Time Status Last Admin Dose Admin Diagnostic Test (Pha) 1 strip IQ4HR 08/13/25 04:00 08/13/25 04:00 1 STRIP Methylprednisolone Sodium Succinate 40 mg ONCE ONCE IV 08/13/25 01:45 08/13/25 01:49 DC 08/13/25 03:16 40 MG Nystatin 5 ml ONCE ONCE MT 08/13/25 01:45 08/13/25 01:49 DC 08/13/25 03:16 5 ML Piperacillin Sod/ Tazobactam Sod 100 ml @ 100 mls/hr ONCE ONCE IV 08/13/25 01:45 08/13/25 02:44 DC 08/13/25 03:17 100 MLS/HR Sodium Chloride 500 ml @ 500 mls/hr Q1H ONCE IV 08/13/25 02:00 08/13/25 02:59 DC 08/13/25 03:16 500 MLS/HR Vancomycin HCl 350 ml @ 175 mls/hr ONCE ONCE IV 08/13/25 02:00 08/13/25 03:59 DC 08/13/25 05:02 175 MLS/HR Assessment/Plan Assessment/Plan Assessment / Problem List 1. Severe sepsis with lactic acidosis lactate 4.8, tachycardia, metabolic acidosis, suspected infectious source. 2. Community-acquired pneumonia vs post-COVID pneumonia bilateral interstitial markings, persistent cough, recent COVID pneumonia. 3. Metabolic acidosis high anion gap, mild (likely lactic). 4. Anemia of chronic disease (Hgb 12.3, low RBC). 5. Alzheimers dementia, stage 3 6. 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 7. Hypothyroidism (on replacement therapy). 8. 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 9. COPD/asthma in acute exacerbation. 10. Chronic sacral pressure ulcer, healed scar, risk for recurrence. 11. BPH with urinary incontinence. 12. Failure to thrive / protein-calorie malnutrition risk. Treatment Plan Immediate Orders * Admit to: Step-down/telemetry unit * Monitoring: Telemetry for arrhythmia/Afib rule-out; strict I/O; daily weights. * Labs: Repeat lactate q6h until normalized, CBC/CMP daily, VBG/ABG, blood cultures x2, UA/urine culture, sputum culture, * Imaging: Repeat CXR in 2448h, ORDERED CT chest [facility] [employer] * IV fluids: NS BOLUS r with close monitoring (avoid overload given age, cirrhosis, COPD). * Empiric antibiotics (sepsis, broad coverage): * Zosyn IV q8h (pseudomonal coverage) * Vancomycin (for MRSA risk, prior admissions) * De-escalate per culture results. * O?: Maintain SpO? >92%, NC as needed. * Cardiac: Continue home metoprolol with hold parameters (if HR <60 or SBP <100). Evaluate for AFib on telemetry. * Endocrine: Continue levothyroxine/liothyronine; monitor TSH as outpatient. * Cirrhosis: Continue lactulose and rifaximin, titrate for 23 BMs/day. Monitor ammonia. * Diabetes: Hold SGLT2 inhibitor (canagliflozin) during acute illness. Sliding scale insulin while inpatient. * Nutrition: Nutrition consult for calorie/protein supplementation, consider supplements/NG if unable to maintain intake. * Wound care: Pressure ulcer prevention, wound care consult. * PT/OT: For mobility and strength rehab. Prophylaxis * DVT prophylaxis: SCD * GI prophylaxis: PPI (pantoprazole) if on steroids/critically ill. * Skin care: Pressure ulcer precautions (turn q2h). * Aspiration precautions: HOB elevated. Plan discussed with: Patient, Daughter My Orders Orders - PATRICK CRONIN RESIDENT Procedure Category Date Status Time Admit ADMIT 08/13/25 Transmitted 02:27 Allergies AUGUSTUS 08/13/25 In Process 02:27 Code Status CODE 08/13/25 Transmitted 02:27 Oxygen Per Hour RT 08/13/25 Transmitted 02:27 Ondansetron Hcl PHA 08/13/25 In Process (Zofran) 02:30 Docusate Sodium PHA 08/13/25 In Process Capsule (Colace 02:30 Multiple Vitamin PHA 08/13/25 In Process Tablet (Mvi Tab) 10:00 Fall Risk Precautions AUGUSTUS 08/13/[address] 02:27 Complete Blood Count LAB 08/14/25 Verified 04:00 Comprehensive LAB 08/14/25 Verified Metabolic Panel 04:00 Pt Request For Service PT 08/13/25 Logged 02:27 * Swallow Request ST 08/13/25 Transmitted 02:27 Condition: Serious AUGUSTUS 08/13/25 In Process 02:27 Acetaminophen Tablet PHA 08/13/25 In Process (Tylenol Tablet) 02:30 Morphine Sulfate PHA 08/13/25 In Process Injection 02:30 Nitroglycerin PHA 08/13/25 In Process Sublingual (Ntrostat 02:30 Morphine Sulfate PHA 08/13/25 In Process Injection 02:30 Oxygen By Nasal RT 08/13/25 Transmitted Cannula 02:27 Stat Ekg For Chest AUGUSTUS 08/13/25 In Process Pain 02:27 Notify Of Changes AUGUSTUS 08/13/25 In Process From Base 02:27 Store Sales Manager For AUGUSTUS 08/13/25 In Process 24 Hours 02:27 Emergency Dysrhythmia AUG[facility]US 08/13/25 In Process Protocol 02:27 Rhythm Strips Once AUG[facility]US 08/13/25 In Process Every Shift 02:27 Date of Service: Aug 13, 2025 Billing Provider: SHEREE FIGUEROA MD Common Visit Codes: [id number] INP/OBS CARE (HIGH) PATRICK CRONIN RESIDENT Aug 13, 2025 05:15
[2025-08-13] MEDS: PANTOPRAZOLE 40 MG TAB PO SCH (06:47)
[2025-08-13] MEDS: PIPERACILLIN-TAZOB 3.375GM 100 ML IV SCH (07:14)
[2025-08-13] MEDS: LEVOTHYROXINE SODIUM 25 MCG TAB PO SCH (07:30)
[2025-08-13 09:28] LABS: Hematocrit 34.7 % (41.0-53.0); Mean Corpuscular Hemoglobin 31.6 pg (28.0-32.0); Mean Corpuscular Volume 92.9 fL (80.0-100.0); Nucleated Red Blood Cells % 0.0 %
[2025-08-13 09:30] LABS: Hemoglobin 11.8 g/dL (13.5-17.5)
[2025-08-13] MEDS: LIOTHYRONINE SODIUM 5 MCG PO SCH (10:00)
[2025-08-13] MEDS: METOPROLOL SUCCINATE XL 50 MG TAB PO SCH (10:36)
[2025-08-13] MEDS: MULTIPLE VITAMIN TAB PO SCH (10:36)
--- NOTE | 2025-08-13 12:57 | DVHPN2 ---
Reviewed: Care Plan, H&P, Labs, Medications, Previous Orders, Radiology Changes from previous H/P or p: No Changes Objective Vitals Vital Signs Date Time Temp Pulse Resp B/P (MAP) Pulse Ox O2 Delivery O2 Flow Rate FiO2 08/13/25 11:20 92 16 111/68 (82) 97 08/13/25 10:03 Room Air 08/13/25 10:03 0 21 08/13/25 07:20 98.3 98.3 Medications Current Medications Medications Dose Ordered Sig/Alexandru Route Start Time Stop Time Status Last Admin Dose Admin Albuterol 2.5 mg Q4HPRN PRN NEB 08/13/25 01:45 Vancomycin HCl 0 ml @ 0 mls/hr UD IV 08/13/25 01:45 Piperacillin Sod/ Tazobactam Sod 100 ml @ 25 mls/hr Q8HR IV 08/13/25 06:00 08/13/25 07:14 25 MLS/HR Diagnostic Test (Pha) 1 strip IQ4HR 08/13/25 04:00 08/13/25 12:24 1 STRIP Insulin Human Regular IQ4HR SC 08/13/25 04:00 08/13/25 12:34 4 UNITS Dextrose 50 ml UD PRN IV 08/13/25 01:45 Ondansetron HCl 4 mg Q4HP PRN IV 08/13/25 02:30 Docusate Sodium 100 mg BIDPRN PRN PO 08/13/25 02:30 Multivitamins 1 tab DAILY PO 08/13/25 10:00 08/13/25 10:36 1 TAB Acetaminophen 650 mg Q6HP PRN PO 08/13/25 02:30 Morphine Sulfate 2 mg Q4HPRN PRN IV 08/13/25 02:30 Nitroglycerin 0.4 mg Q5MINP PRN SL 08/13/25 02:30 Morphine Sulfate 2 mg Q30M PRN IV 08/13/25 02:30 Pantoprazole Sodium 40 mg DAILY@0600 PO 08/13/25 06:00 08/13/25 06:47 40 MG Levothyroxine Sodium 25 mcg QAM PO 08/13/25 07:00 08/13/25 07:30 25 MCG Tamsulosin HCl 0.4 mg QPM PO 08/13/25 18:00 Donepezil HCl 10 mg QPM PO 08/13/25 18:00 Patient Own Medication 5 mcg BID PO 08/13/25 10:00 Patient Own Medication 1 tab DAILY PO 08/13/25 10:00 Metoprolol Succinate 25 mg DAILY PO 08/13/25 10:00 08/13/25 10:36 25 MG Laboratory Results Laboratory Tests 08/12/25 15:33 08/13/25 06:40 Chemistry Test 08/12/25 15:33 Calcium Level 8.8 mg/dL (8.7-10.4) Coagulation Test 08/13/25 06:40 D-Dimer, Quantitative 2.86 mg/L FEU (0.0-0.49) H Cardiac Markers Test 08/13/25 02:20 B-Type Natriuretic Peptide 81.66 pg/mL (0-100) HgA1c, TSH Test 08/13/25 06:40 Hemoglobin A1c 6.0 % A1C (<5.7) H Labs and/or images reviewed: Labs reviewed by me, Image(s) reviewed by me Assessment/Plan Assessment/Plan 1. Severe sepsis with lactic acidosis lactate 4.8, tachycardia, metabolic acidosis, suspected infectious source. 2. Community-acquired pneumonia vs post-COVID pneumonia bilateral interstitial markings, persistent cough, recent COVID pneumonia. Zosyn vancomycin 3. Metabolic acidosis high anion gap, mild (likely lactic). 4. Anemia of chronic disease (Hgb 12.3, low RBC). 5. Alzheimers dementia, stage 3 6. 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 7. Hypothyroidism (on replacement therapy). 8. 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 9. COPD/asthma in acute exacerbation. 10. Chronic sacral pressure ulcer, healed scar, risk for recurrence. 11. BPH with urinary incontinence. 12. Failure to thrive / protein-calorie malnutrition risk. Rapid flu test negative COVID test neg Time spent 70 minutes Advanced care planning time 20 minutes Patient is full code Plan discussed with: Patient Date of Service: Aug 13, 2025 Billing Provider: MICHAEL LOWE MD Common Visit Codes: [id number] CARE 30-74 MIN MICHAEL LOWE MD Aug 13, 2025 12:57
[2025-08-13] MEDS: VANCOMYCIN 750MG KIT 100 ML IV SCH (17:00)
[2025-08-13] MEDS: TAMSULOSIN HYDROCHLORIDE 0.4 MG CAP PO SCH (19:14)
[2025-08-13] MEDS: DONEPEZIL HYDROCHLORIDE 5 MG TAB PO SCH (19:14)
[2025-08-14] VITALS (10 sets, daily range): BP systolic 97–126; BP diastolic 61–79; PULSE 64–116; RESP 16–18; TEMP 97.1–99.8; O2SAT 97–99
[2025-08-14] MEDS ORDERED: ALEN70TA74 PO (01:42)
[2025-08-14] MEDS ORDERED: RIFA550T PO (01:42)
[2025-08-14] MEDS ORDERED: MULT-1058 PO (01:42)
[2025-08-14] MEDS ORDERED: PANT40T PO (01:42)
[2025-08-14] MEDS ORDERED: PANC1CAP54 PO (01:43)
[2025-08-14 07:11] LABS: Hematocrit 33.8 % (41.0-53.0); Hemoglobin 11.5 g/dL (13.5-17.5); Mean Corpuscular Hemoglobin 32.1 pg (28.0-32.0); Mean Corpuscular Volume 94.1 fL (80.0-100.0); Nucleated Red Blood Cells % 0.1 %
[2025-08-14 07:27] LABS: Alanine Aminotransferase 13 U/L (7-40); Alkaline Phosphatase 66 U/L (46-116); Anion Gap 12 (5-15); BUN/Creatinine Ratio 11.9 (10.0-20.0); Blood Urea Nitrogen 10 mg/dL (9-23); Potassium 3.9 mmol/L (3.5-5.1); Sodium 140 mmol/L (136-145)
[2025-08-14 07:28] LABS: Bilirubin, Total 0.5 mg/dL (0.2-1.0)
[2025-08-14 07:30] LABS: Albumin 3.0 g/dL (3.2-4.8); Calcium 8.5 mg/dL (8.7-10.4); Carbon Dioxide 19 mmol/L (20-31); Chloride 109 mmol/L (98-107); Glucose 187 mg/dL (74-106); Total Protein 5.6 g/dL (5.7-8.2)
--- NOTE | 2025-08-14 10:25 | DVHPN2 ---
Reviewed: Care Plan, H&P, Labs, Medications, Previous Orders, Radiology Changes from previous H/P or p: No Changes Objective Vitals Vital Signs Date Time Temp Pulse Resp B/P (MAP) Pulse Ox O2 Delivery O2 Flow Rate FiO2 08/14/25 09:28 104 123/75 08/14/25 06:46 99 Room Air 0.0 08/14/25 06:46 21 08/14/25 05:00 97.1 17 97.1 Intake/Output Intake and Output 08/14/25 07:00 Intake Total 145 ml Balance 145 ml Intake Oral 120 ml IV Total 25 ml # Voids 3 # Bowel Movements 1 Medications Current Medications Medications Dose Ordered Sig/Alexandru Route Start Time Stop Time Status Last Admin Dose Admin Albuterol 2.5 mg Q4HPRN PRN NEB 08/13/25 01:45 Vancomycin HCl 0 ml @ 0 mls/hr UD IV 08/13/25 01:45 Piperacillin Sod/ Tazobactam Sod 100 ml @ 25 mls/hr Q8HR IV 08/13/25 06:00 08/14/25 06:18 25 MLS/HR Diagnostic Test (Pha) 1 strip IQ4HR 08/13/25 04:00 08/14/25 09:28 1 STRIP Insulin Human Regular IQ4HR SC 08/13/25 04:00 08/14/25 09:43 4 UNITS Dextrose 50 ml UD PRN IV 08/13/25 01:45 Ondansetron HCl 4 mg Q4HP PRN IV 08/13/25 02:30 Docusate Sodium 100 mg BIDPRN PRN PO 08/13/25 02:30 Multivitamins 1 tab DAILY PO 08/13/25 10:00 08/14/25 09:26 1 TAB Acetaminophen 650 mg Q6HP PRN PO 08/13/25 02:30 Morphine Sulfate 2 mg Q4HPRN PRN IV 08/13/25 02:30 Nitroglycerin 0.4 mg Q5MINP PRN SL 08/13/25 02:30 Morphine Sulfate 2 mg Q30M PRN IV 08/13/25 02:30 Pantoprazole Sodium 40 mg DAILY@0600 PO 08/13/25 06:00 08/14/25 06:12 40 MG Levothyroxine Sodium 25 mcg QAM PO 08/13/25 07:00 08/14/25 06:12 25 MCG Tamsulosin HCl 0.4 mg QPM PO 08/13/25 18:00 08/13/25 19:14 0.4 MG Donepezil HCl 10 mg QPM PO 08/13/25 18:00 08/13/25 19:14 10 MG Patient Own Medication 5 mcg BID PO 08/13/25 10:00 08/14/25 09:27 5 MCG Patient Own Medication 1 tab DAILY PO 08/13/25 10:00 08/14/25 09:27 1 TAB Metoprolol Succinate 25 mg DAILY PO 08/13/25 10:00 08/14/25 09:28 25 MG Vancomycin HCl 100 ml @ 100 mls/hr Q12H IV 08/13/25 17:00 08/14/25 05:15 100 MLS/HR Laboratory Results Laboratory Tests 08/14/25 05:30 Chemistry Test 08/14/25 05:30 Albumin 3.0 g/dL (3.2-4.8) L Calcium Level 8.5 mg/dL (8.7-10.4) L Total Protein 5.6 g/dL (5.7-8.2) L LFT Test 08/14/25 05:30 Alanine Aminotransferase (ALT) 13 U/L (7-40) Alkaline Phosphatase 66 U/L (46-116) Aspartate Amino Transferase (AST) 12 U/L (13-40) L Total Bilirubin 0.5 mg/dL (0.2-1.0) Microbiology Microbiology Date/Time Source Procedure Growth Status 08/13/25 02:20 Blood Blood Culture - Preliminary NO GROWTH AFTER 24 HOURS OF INCUBATION. Resulted Labs and/or images reviewed: Labs reviewed by me, Image(s) reviewed by me Assessment/Plan Assessment/Plan 1. Severe sepsis with lactic acidosis lactate 4.8, tachycardia, metabolic acidosis, suspected infectious source. 2. Community-acquired pneumonia vs post-COVID pneumonia bilateral interstitial markings, persistent cough, recent COVID pneumonia. Zosyn vancomycin 3. Metabolic acidosis high anion gap, mild (likely lactic). 4. Anemia of chronic disease (Hgb 12.3, low RBC). 5. Alzheimers dementia, stage 3 6. 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 7. Hypothyroidism (on replacement therapy). 8. 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 9. COPD/asthma in acute exacerbation. 10. Chronic sacral pressure ulcer, healed scar, risk for recurrence. 11. BPH with urinary incontinence. 12. Failure to thrive / protein-calorie malnutrition risk. Rapid flu test negative COVID test neg Time spent 70 minutes Advanced care planning time 20 minutes Patient is full code Plan discussed with: Patient MICHAEL LOWE MD Aug 14, 2025 10:25
--- NOTE | 2025-08-14 10:37 | DVHPN2 ---
Reviewed: Care Plan, H&P, Labs, Medications, Previous Orders, Radiology Changes from previous H/P or p: No Changes Objective Vitals Vital Signs Date Time Temp Pulse Resp B/P (MAP) Pulse Ox O2 Delivery O2 Flow Rate FiO2 08/14/25 09:28 104 123/75 08/14/25 06:46 99 Room Air 0.0 08/14/25 06:46 21 08/14/25 05:00 97.1 17 97.1 Intake/Output Intake and Output 08/14/25 07:00 Intake Total 145 ml Balance 145 ml Intake Oral 120 ml IV Total 25 ml # Voids 3 # Bowel Movements 1 Medications Current Medications Medications Dose Ordered Sig/Alexandru Route Start Time Stop Time Status Last Admin Dose Admin Albuterol 2.5 mg Q4HPRN PRN NEB 08/13/25 01:45 Vancomycin HCl 0 ml @ 0 mls/hr UD IV 08/13/25 01:45 Piperacillin Sod/ Tazobactam Sod 100 ml @ 25 mls/hr Q8HR IV 08/13/25 06:00 08/14/25 06:18 25 MLS/HR Diagnostic Test (Pha) 1 strip IQ4HR 08/13/25 04:00 08/14/25 09:28 1 STRIP Insulin Human Regular IQ4HR SC 08/13/25 04:00 08/14/25 09:43 4 UNITS Dextrose 50 ml UD PRN IV 08/13/25 01:45 Ondansetron HCl 4 mg Q4HP PRN IV 08/13/25 02:30 Docusate Sodium 100 mg BIDPRN PRN PO 08/13/25 02:30 Multivitamins 1 tab DAILY PO 08/13/25 10:00 08/14/25 09:26 1 TAB Acetaminophen 650 mg Q6HP PRN PO 08/13/25 02:30 Morphine Sulfate 2 mg Q4HPRN PRN IV 08/13/25 02:30 Nitroglycerin 0.4 mg Q5MINP PRN SL 08/13/25 02:30 Morphine Sulfate 2 mg Q30M PRN IV 08/13/25 02:30 Pantoprazole Sodium 40 mg DAILY@0600 PO 08/13/25 06:00 08/14/25 06:12 40 MG Levothyroxine Sodium 25 mcg QAM PO 08/13/25 07:00 08/14/25 06:12 25 MCG Tamsulosin HCl 0.4 mg QPM PO 08/13/25 18:00 08/13/25 19:14 0.4 MG Donepezil HCl 10 mg QPM PO 08/13/25 18:00 08/13/25 19:14 10 MG Patient Own Medication 5 mcg BID PO 08/13/25 10:00 08/14/25 09:27 5 MCG Patient Own Medication 1 tab DAILY PO 08/13/25 10:00 08/14/25 09:27 1 TAB Metoprolol Succinate 25 mg DAILY PO 08/13/25 10:00 08/14/25 09:28 25 MG Vancomycin HCl 100 ml @ 100 mls/hr Q12H IV 08/13/25 17:00 08/14/25 05:15 100 MLS/HR Laboratory Results Laboratory Tests 08/14/25 05:30 Chemistry Test 08/14/25 05:30 Albumin 3.0 g/dL (3.2-4.8) L Calcium Level 8.5 mg/dL (8.7-10.4) L Total Protein 5.6 g/dL (5.7-8.2) L LFT Test 08/14/25 05:30 Alanine Aminotransferase (ALT) 13 U/L (7-40) Alkaline Phosphatase 66 U/L (46-116) Aspartate Amino Transferase (AST) 12 U/L (13-40) L Total Bilirubin 0.5 mg/dL (0.2-1.0) Microbiology Microbiology Date/Time Source Procedure Growth Status 08/13/25 02:20 Blood Blood Culture - Preliminary NO GROWTH AFTER 24 HOURS OF INCUBATION. Resulted Labs and/or images reviewed: Labs reviewed by me, Image(s) reviewed by me Assessment/Plan Assessment/Plan 1. Severe sepsis with lactic acidosis lactate 4.8, tachycardia, metabolic acidosis, suspected infectious source. 2. Community-acquired pneumonia vs post-COVID pneumonia bilateral interstitial markings, persistent cough, recent COVID pneumonia. Zosyn vancomycin 3. Metabolic acidosis high anion gap, mild (likely lactic). 4. Anemia of chronic disease (Hgb 12.3, low RBC). 5. Alzheimers dementia, stage 3 6. 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 7. Hypothyroidism (on replacement therapy). 8. 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 9. COPD/asthma in acute exacerbation. 10. Chronic sacral pressure ulcer, healed scar, risk for recurrence. 11. BPH with urinary incontinence. 12. Failure to thrive / protein-calorie malnutrition risk. 13. History of COVID pneumonia treated at [facility] 07-31-25 to 08-07-25 Patient's daughter and power of document review attorney Tiesha [phone] bedside Rapid flu test negative COVID test neg Blood Cultures negative Time spent 70 minutes Advanced care planning time 20 minutes Patient is full code Plan discussed with: Patient Date of Service: Aug 14, 2025 Billing Provider: MICHAEL LOWE MD Common Visit Codes: [id number] CARE 30-74 MIN MICHAEL LOWE MD Aug 14, 2025 10:37
[2025-08-15] VITALS (9 sets, daily range): BP systolic 106–130; BP diastolic 68–88; PULSE 84–107; RESP 16–18; TEMP 97.2–98.9; O2SAT 97–98
[2025-08-15 04:26] LABS: Hematocrit 33.5 % (41.0-53.0); Hemoglobin 11.6 g/dL (13.5-17.5); Mean Corpuscular Hemoglobin 32.2 pg (28.0-32.0); Mean Corpuscular Volume 92.8 fL (80.0-100.0); Nucleated Red Blood Cells % 0.2 %
--- NOTE | 2025-08-15 12:33 | DVHPN2 ---
Reviewed: Care Plan, H&P, Labs, Medications, Previous Orders, Radiology Changes from previous H/P or p: No Changes Objective Vitals Vital Signs Date Time Temp Pulse Resp B/P (MAP) Pulse Ox O2 Delivery O2 Flow Rate FiO2 08/15/25 09:28 83 101/48 08/15/25 09:00 98.5 16 97 98.5 08/15/25 08:00 Room Air* 0 21 Intake/Output Intake and Output 08/15/25 07:00 Intake Total 2560 ml Balance 2560 ml Intake Oral 2060 ml IV Total 500 ml # Voids 6 Medications Current Medications Medications Dose Ordered Sig/Alexandru Route Start Time Stop Time Status Last Admin Dose Admin Albuterol 2.5 mg Q4HPRN PRN NEB 08/13/25 01:45 Vancomycin HCl 0 ml @ 0 mls/hr UD IV 08/13/25 01:45 Piperacillin Sod/ Tazobactam Sod 100 ml @ 25 mls/hr Q8HR IV 08/13/25 06:00 08/15/25 06:00 25 MLS/HR Diagnostic Test (Pha) 1 strip IQ4HR 08/13/25 04:00 08/15/25 11:26 1 STRIP Insulin Human Regular IQ4HR SC 08/13/25 04:00 08/15/25 11:26 4 UNITS Dextrose 50 ml UD PRN IV 08/13/25 01:45 Ondansetron HCl 4 mg Q4HP PRN IV 08/13/25 02:30 Docusate Sodium 100 mg BIDPRN PRN PO 08/13/25 02:30 Multivitamins 1 tab DAILY PO 08/13/25 10:00 08/15/25 09:27 1 TAB Acetaminophen 650 mg Q6HP PRN PO 08/13/25 02:30 Morphine Sulfate 2 mg Q4HPRN PRN IV 08/13/25 02:30 Nitroglycerin 0.4 mg Q5MINP PRN SL 08/13/25 02:30 Morphine Sulfate 2 mg Q30M PRN IV 08/13/25 02:30 Pantoprazole Sodium 40 mg DAILY@0600 PO 08/13/25 06:00 08/15/25 06:37 40 MG Levothyroxine Sodium 25 mcg QAM PO 08/13/25 07:00 08/15/25 06:37 25 MCG Tamsulosin HCl 0.4 mg QPM PO 08/13/25 18:00 08/14/25 17:16 0.4 MG Donepezil HCl 10 mg QPM PO 08/13/25 18:00 08/14/25 17:16 10 MG Patient Own Medication 5 mcg BID PO 08/13/25 10:00 08/15/25 09:28 5 MCG Patient Own Medication 1 tab DAILY PO 08/13/25 10:00 08/15/25 09:28 1 TAB Metoprolol Succinate 25 mg DAILY PO 08/13/25 10:00 08/14/25 09:28 25 MG Vancomycin HCl 100 ml @ 100 mls/hr Q12H IV 08/13/25 17:00 08/15/25 04:49 100 MLS/HR Laboratory Results Laboratory Tests 08/14/25 05:30 08/15/25 03:45 Microbiology Microbiology Date/Time Source Procedure Growth Status 08/13/25 02:20 Blood Blood Culture - Preliminary NO GROWTH AFTER 48 HOURS OF INCUBATION. Resulted Labs and/or images reviewed: Labs reviewed by me, Image(s) reviewed by me Assessment/Plan Assessment/Plan 1. Severe sepsis with lactic acidosis lactate 4.8, tachycardia, metabolic acidosis, suspected infectious source. 2. Community-acquired pneumonia vs post-COVID pneumonia bilateral interstitial markings, persistent cough, recent COVID pneumonia. Zosyn vancomycin 3. Metabolic acidosis high anion gap, mild (likely lactic). 4. Anemia of chronic disease (Hgb 12.3, low RBC). 5. Alzheimers dementia, stage 3 6. 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 7. Hypothyroidism (on replacement therapy). 8. 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 9. COPD/asthma in acute exacerbation. 10. Chronic sacral pressure ulcer, healed scar, risk for recurrence. 11. BPH with urinary incontinence. 12. Failure to thrive / protein-calorie malnutrition risk. 13. History of COVID pneumonia treated at [facility] 07-31-25 to 08-07-25 Patient's daughter and power of b2b sales representative Tiesha [phone] bedside Rapid flu test negative COVID test neg Blood Cultures negative Time spent 70 minutes Advanced care planning time 20 minutes Patient is full code Will DC home on Tuesday Plan discussed with: Patient My Orders Orders - MICHAEL LOWE MD Procedure Category Date Status Time Apply [facility] 08/14/25 In Process 13:23 Date of Service: Aug 15, 2025 Billing Provider: MICHAEL LOWE MD Common Visit Codes: [id number] INP/OBS CARE(HIGH) MICHAEL LOWE MD Aug 15, 2025 12:33
[2025-08-16] VITALS (8 sets, daily range): BP systolic 91–151; BP diastolic 53–84; PULSE 73–120; RESP 17–20; TEMP 97.8–98.7; O2SAT 96–99
--- NOTE | 2025-08-16 08:21 | ECG ---
[facility] Test Date: 2025-08-16 Test Time: 03:25:31 Pat Name: LOVE LIN Department: Respiratoy Room: 0278T B Gender: M Paid Search Marketing Analyst: NADINE : 1940 Requested By: BRITT JJ Order Number: [id number] Reading MD: Mihir Elise Measurements Intervals [place] Rate: 121 P: 33 KS: 142 QRS: -39 QRSD: 112 T: 16 QT: 345 QTc: 490 Interpretive Statements Sinus tachycardia Incomplete right bundle branch block Borderline prolonged QT interval Electronically Signed On 08-19-2025 18:21:37 PDT by Mihir Elise Please click the below link to view image of tracing.
[2025-08-16] MEDS: NYSTATIN (MOUTH-THROAT) 500,000 UNITS/5 ML SUSP MT SCH (09:13)
--- NOTE | 2025-08-16 10:53 | DVHPN2 ---
Reviewed: Care Plan, H&P, Labs, Medications, Previous Orders, Radiology Changes from previous H/P or p: No Changes Objective Vitals Vital Signs Date Time Temp Pulse Resp B/P (MAP) Pulse Ox O2 Delivery O2 Flow Rate FiO2 08/16/25 09:14 84 121/53 08/16/25 09:00 98.5 20 98 98.5 08/16/25 07:45 Room Air* 0 21 Intake/Output Intake and Output 08/16/25 07:00 Intake Total 1050 ml Balance 1050 ml Intake Oral 550 ml IV Total 500 ml # Voids 8 # Bowel Movements 2 Medications Current Medications Medications Dose Ordered Sig/Alexandru Route Start Time Stop Time Status Last Admin Dose Admin Albuterol 2.5 mg Q4HPRN PRN NEB 08/13/25 01:45 Cancel Vancomycin HCl 0 ml @ 0 mls/hr UD IV 08/13/25 01:45 Piperacillin Sod/ Tazobactam Sod 100 ml @ 25 mls/hr Q8HR IV 08/13/25 06:00 08/16/25 06:53 25 MLS/HR Diagnostic Test (Pha) 1 strip IQ4HR 08/13/25 04:00 08/16/25 08:00 1 STRIP Insulin Human Regular IQ4HR SC 08/13/25 04:00 08/16/25 08:00 2 UNITS Dextrose 50 ml UD PRN IV 08/13/25 01:45 Ondansetron HCl 4 mg Q4HP PRN IV 08/13/25 02:30 Docusate Sodium 100 mg BIDPRN PRN PO 08/13/25 02:30 Multivitamins 1 tab DAILY PO 08/13/25 10:00 08/16/25 09:14 1 TAB Acetaminophen 650 mg Q6HP PRN PO 08/13/25 02:30 Morphine Sulfate 2 mg Q4HPRN PRN IV 08/13/25 02:30 Nitroglycerin 0.4 mg Q5MINP PRN SL 08/13/25 02:30 Morphine Sulfate 2 mg Q30M PRN IV 08/13/25 02:30 Pantoprazole Sodium 40 mg DAILY@0600 PO 08/13/25 06:00 08/16/25 05:15 40 MG Levothyroxine Sodium 25 mcg QAM PO 08/13/25 07:00 08/16/25 05:15 25 MCG Tamsulosin HCl 0.4 mg QPM PO 08/13/25 18:00 08/15/25 17:15 0.4 MG Donepezil HCl 10 mg QPM PO 08/13/25 18:00 08/15/25 17:15 10 MG Patient Own Medication 5 mcg BID PO 08/13/25 10:00 08/16/25 09:14 5 MCG Patient Own Medication 1 tab DAILY PO 08/13/25 10:00 08/16/25 09:14 1 TAB Metoprolol Succinate 25 mg DAILY PO 08/13/25 10:00 08/16/25 09:14 25 MG Vancomycin HCl 100 ml @ 100 mls/hr Q12H IV 08/13/25 17:00 08/16/25 05:01 100 MLS/HR Rifaximin 550 mg BID PO 08/15/25 22:00 08/16/25 09:14 550 MG Nystatin 5 ml DAILY MT 08/16/25 10:00 08/16/25 09:13 5 ML Laboratory Results Laboratory Tests 08/14/25 05:30 08/15/25 03:45 08/16/25 04:57 Microbiology Microbiology Date/Time Source Procedure Growth Status 08/13/25 02:20 Blood Blood Culture - Preliminary NO GROWTH AFTER 72 HOURS OF INCUBATION. Resulted Labs and/or images reviewed: Labs reviewed by me, Image(s) reviewed by me Assessment/Plan Assessment/Plan 1. Severe sepsis with lactic acidosis lactate 4.8, tachycardia, metabolic acidosis, 2. Community-acquired pneumonia vs post-COVID pneumonia bilateral interstitial markings, persistent cough, recent COVID pneumonia. Zosyn vancomycin 3. Metabolic acidosis high anion gap, mild (likely lactic). 4. Anemia of chronic disease (Hgb 12.3, low RBC). 5. Alzheimers dementia, stage 3 6. 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 7. Hypothyroidism (on replacement therapy). 8. 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 9. COPD/asthma in acute exacerbation. 10. Chronic sacral pressure ulcer, healed scar, risk for recurrence. 11. BPH with urinary incontinence. 12. Failure to thrive / protein-calorie malnutrition risk. 13. History of COVID pneumonia treated at [facility] 07-31-25 to 08-07-25 Patient's daughter and power of key carrier Tiesha [phone] bedside Rapid flu test negative COVID test neg Blood Cultures negative Time spent 60 minutes Advanced care planning time 20 minutes Patient is full code Plan discussed with: Patient My Orders Orders - MICHAEL LOWE MD Procedure Category Date Status Time Nystatin PHA 08/16/25 In Process (Mouth-Throat) 10:00 Rifaximin (Xifaxan) PHA 08/15/25 In Process 22:00 Date of Service: Aug 16, 2025 Billing Provider: MICHAEL LOWE MD Common Visit Codes: [id number] INP/OBS CARE(HIGH) MICHAEL LOWE MD Aug 16, 2025 10:53
--- NOTE | 2025-08-16 11:56 | DVHINCON2 ---
Date Seen: Aug 16, 2025 Referring Physician MD Gus Reason for Consultation Sinus tachycardia History of Present Illness This is a Slovak-speaking 85-year-old male patient who presents to emergency room with chief complaint of palpitations, chest pain, and cough. The patient's daughter, Tiesha, who is also his caregiver states that the patient began complaining of chest pain at approximately 12:00 p.m. on the day of emergency room arrival. Given that the patient has a history of dementia, he was unable to verbalize the characteristics of the chest pain. He reported "fast beating heart" to his daughter. She reports checking his vital signs at home and noticing that his pulse was 104 beats per minute while he was sitting in his recliner. At the time of assessment, the patient is only alert to self. History obtained from patient's daughter Tiesha. Initial twelve lead electrocardiogram found in patient's chart reveals sinus tachycardia with Q- waves in inferior leads. Patient is currently in normal sinus rhythm on cardiac exercise physiologist. Initial troponin level on admission was negative. Significant past medical history includes hypertension, dyslipidemia, recent COVID pneumonia, COPD, asthma, type 2 diabetes mellitus, thyroid disease, BPH, urinary incontinence, and dementia. The patient's daughter Tiesha is his full-time caregiver at home. She reports that the patient had a recent admission to [facility] from July 31, 2025 to August 07, 2025 where the patient was diagnosed with COVID pneumonia. Past Medical History Past medical history reviewed. No other significant than mentioned above. Past Surgical History Left knee replacement Cholecystectomy Family History Family history reviewed. Social History Denies the use of tobacco, alcohol or illicit drugs. Allergies: Coded Allergies: Azithromycin (Verified Allergy, Severe, 08/12/25) Home Meds Reported Medications Pancreatic Enzymes (Creon) 12,000 Unt Cap, 65476 UNT PO BIDWM, CAP 08/14/25 Multiple Vitamins W/ Minerals (Multivitamin) 1 Tab Tab, 1 TAB PO, TAB 08/14/25 Pantoprazole Sodium Sesquihydr (Pantoprazole Sodium) 40 Mg Tab, 40 MG PO, TAB 08/14/25 Alendronate Sodium (Alendronate Sodium) 70 Mg Tab, 70 MG PO Q7D, TAB 08/14/25 Rifaximin (Xifaxan) 550 Mg Tab, 1 TAB PO BID, #28 TAB 08/14/25 Pioglitazone Hydrochloride (PIOGLITAZONE HCL) 30 Mg Tab, 30 MG OR QPM, TAB 08/03/24 Trazodone Hcl (Trazodone Hcl) 50 Mg Tab, 50 MG PO QPM, MG 08/03/24 Omeprazole (Gnp Omeprazole) 20 Mg Tab, 20 MG PO QPM, TAB 08/03/24 Donepezil Hydrochloride (DONEPEZIL HCL) 10 Mg Tab, 10 MG PO QPM for 30 Days, MG 08/03/24 Lovastatin (Lovastatin) 20 Mg Tab, 1 TAB PO DAILY, #30 TAB 5 Refills 08/03/24 Canagliflozin (INVOKANA) 300 Mg Tab, 300 MG OR DAILY, TAB 08/03/24 Tamsulosin Hcl (Tamsulosin Hcl) 0.4 Mg Cap, 0.4 MG PO QPM for 30 Days, MG 08/03/24 Levothyroxine Sodium (Levothyroxine Sodium) 25 Mcg Tab, 25 MCG PO QAM, MCG 08/03/24 Megestrol Acetate (Megestrol Acetate) 40 Mg Tab, 40 MG PO DAILY 08/03/24 Memantine Hydrochloride (Memantine HCl) 10 Mg Tab, 10 MG PO BID, TAB 08/03/24 Liothyronine Sodium (Liothyronine Sodium) 5 Mcg Tab, 5 MCG PO BID, TAB 08/03/24 Discontinued Reported Medications Metformin Hydrochloride (Metformin Hcl) 500 Mg Tab, 1000 MG PO BID for 30 Days, MG 08/03/24 Home Meds Home medications reviewed. Current Medications Current Medications Medications (Trade) Dose Ordered Sig/Alexandru Route PRN Reason Start Time Stop Time Status Last Admin Rifaximin (Xifaxan) 550 mg BID PO 08/15/25 22:00 08/16/25 09:14 Nystatin (Mycostatin (Mouth-Throat)) 5 ml DAILY MT 08/16/25 10:00 08/16/25 09:13 Review of Systems Constitutional: No symptom reported Ears, Nose, & Throat: No symptom reported Eyes: No symptom reported Neurological: No symptoms reported Pulmonary/Respiratory: Off Cardiovascular: Chest pain, palpitations Gastrointestinal: No symptom reported Genitourinary: No symptom reported Musculoskeletal: No symptom reported Skin: No symptom reported Psychiatric: No symptom reported Endocrine: No symptom reported Hematologic/Lymphatic: No symptom reported Vital Signs Vital Signs Date Time Temp Pulse Resp B/P (MAP) Pulse Ox O2 Delivery O2 Flow Rate FiO2 08/16/25 09:14 84 121/53 08/16/25 09:00 98.5 20 98 98.5 08/16/25 07:45 Room Air* 0 21 Physical Exam General Appearance: Cooperative. Well-developed. Well-nourished. No acute distress. Pulmonary/Respiratory: Clear, bilateral breaths sounds. Cardiovascular/Chest: Regular rate and rhythm. Peripheral Pulses: 2+ Radial (R). 2+ Radial (L). 2+ Pedal (R). 2+ Pedal (L) Abdominal Exam: Normal bowel sounds. Ankle Exam: Negative ankle edema Lower extremities: Negative lower extremity edema Neuro/Mental Status: A/OX1, confused Thoughts/Psych: Deferred Appearance: No acute distress. Skin Exam: Normal inspection. Normal color. Warm and dry. Labs/Diagnostic Data Labs Test 08/16/25 11:35 08/16/25 04:57 08/15/25 03:45 08/14/25 05:30 Range/Units POC Glucose 214 H 70-106 mg/dl Creatinine 0.77 0.700-1.30 mg/dL Glomerular Filtration Rate Calc 89 >90 mL/min White Blood Count 6.6 4.4-10.8 10^3/uL Red Blood Count 3.61 L 4.5-5.90 10^6/uL Hemoglobin 11.6 L 13.5-17.5 g/dL Hematocrit 33.5 L 41.0-53.0 % Mean Corpuscular Volume 92.8 80.0-100.0 fL Mean Corpuscular Hemoglobin 32.2 H 28.0-32.0 pg Mean Corpuscular Hemoglobin Concent 34.7 32.0-36.0 g/dL Red Cell Distribution Width 14.7 H 11.8-14.3 % Platelet Count 118 L 140-450 10^3/uL Mean Platelet Volume 10.1 6.9-10.8 fL Neutrophils (%) (Auto) 68.8 37.0-80.0 % Lymphocytes (%) (Auto) 20.2 10.0-50.0 % Monocytes (%) (Auto) 6.2 0.0-12.0 % Eosinophils (%) (Auto) 3.8 0.0-7.0 % Basophils (%) (Auto) 1.0 0.0-2.0 % Neutrophils # (Auto) 4.5 1.6-8.6 10 ^3/uL Lymphocytes # (Auto) 1.3 0.4-5.4 10 ^3/uL Monocytes # (Auto) 0.4 0-1.3 10 ^3/uL Eosinophils # (Auto) 0.2 0-0.8 10 ^3/uL Basophils # (Auto) 0.1 0-0.2 10 ^3/uL Nucleated Red Blood Cells 0.2 % Vancomycin Level Trough 15.7 H 5-10 ug/mL Sodium Level 140 136-145 mmol/L Potassium Level 3.9 3.5-5.1 mmol/L Chloride Level 109 H 98-107 mmol/L Carbon Dioxide Level 19 L 20-31 mmol/L Anion Gap 12 5-15 Blood Urea Nitrogen 10 9-23 mg/dL BUN/Creatinine Ratio 11.9 10.0-20.0 Serum Glucose 187 H 74-106 mg/dL Calcium Level 8.5 L 8.7-10.4 mg/dL Total Bilirubin 0.5 0.2-1.0 mg/dL Aspartate Amino Transferase (AST) 12 L 13-40 U/L Alanine Aminotransferase (ALT) 13 7-40 U/L Alkaline Phosphatase 66 46-116 U/L Total Protein 5.6 L 5.7-8.2 g/dL Albumin 3.0 L 3.2-4.8 g/dL Test 08/13/25 06:40 08/13/25 02:20 08/12/25 23:20 08/12/25 15:33 Range/Units D-Dimer, Quantitative 2.86 H 0.0-0.49 mg/L FEU Hemoglobin A1c 6.0 H <5.7 % A1C Lactic Acid Level 1.4 0.4-2.0 mmol/L B-Type Natriuretic Peptide 81.66 0-100 pg/mL Influenza Type A Antigen Negative Negative Influenza Type B Antigen Negative Negative SARS-CoV-2 Antigen (Rapid) Negative NEGATIVE Troponin I High Sensitivity 17 </=54 ng/L Microbiology Date/Time Source Procedure Growth Status 08/13/25 02:20 Blood Blood Culture - Preliminary NO GROWTH AFTER 72 HOURS OF INCUBATION. Resulted Assessment Sinus tachycardia Rule out structural heart disease Sepsis Pneumonia COPD Hypertension Dyslipidemia Asthma Type 2 diabetes mellitus Thyroid disease BPH Urinary incontinence Dementia Wheelchair-bound Plan/Recommendation We will continue with the following plan/recommendations (Dr. Martínez): We will proceed with obtaining a transthoracic echocardiogram to evaluate cardiac function. Patient noted to have episodes of sinus tachycardia on cardiac exercise physiologist. Sinus tachycardia in the setting of severe sepsis with pneumonia. Antibiotics per primary care team. Continue with close cardiac surveillance and monitor for any cardiac arrhythmias. Thank you for allowing us to care for this patient. Please call with any questions or concerns. Critical care time spent: 44 minutes This medical document was created using an electronic medical record system with voice recognition software and computerized dictation system. Although this document has been carefully reviewed, there might still be some phonetic and typographical errors. Occasional wrong-word or ``sound-alike substitutions may have occurred due to the inherent limitations of voice recognition software. These areas are purely typographical due to imperfections of the software programs and do not reflect any compromise in the patient's medical care. Please read the chart carefully and recognize, using context, where these substitutions have occurred. Plan discussed with: Daughter, Other (Bedside RN) NYHA Physical activity limitations: NA Date of Service: Aug 16, 2025 Billing Provider: JONATHON SIMPSON Cardiology Common Codes: [id number] INP/OBS CARE (High) Cardiology Consultation Codes: [id number] CONSULT <45MIN JONATHON SIMPSON Aug 16, 2025 11:56
[2025-08-16 15:11] LABS: Magnesium 1.7 mg/dL (1.6-2.6); Triglycerides 144.0 mg/dL (< 150)
[2025-08-16 15:13] LABS: Cholesterol 137.0 mg/dL (< 200); HDL Cholesterol 34.0 mg/dL (40-59)
--- NOTE | 2025-08-16 20:13 | DVHSR ---
APPROVED REPORT EXAM: Two-dimensional and M-mode echocardiogram with Doppler and color Doppler. Blood Pressure: 121/53 mmHg INDICATION Tachycardia RISK FACTORS Height: 5' 5", Weight: 145 DIMENSIONS LVDd4.2 (3.8-5.7cm)LA (2D)3.3 (1.9-4.0cm)Aortic Root3.8 (2.0-3.7cm) LVDs3.0 (2.5-4.0cm)LA (MM) (1.9-4.0cm)Aortic Cusp Exc1.4 (1.5-2.0cm) EF (%) 55.0 (55-70%)Rt. Atrium3.5 (1.9-4.0cm)Asc. Aorta cm IVSd1.1 (0.7-1.1cm)RV (D) (1.8-2.4cm) PWd1.0 (0.7-1.1cm) Mitral Valve MitralMitral Stenosis E wave0.70m/sMV Mean GR.mmHg A wave1.00m/sMV Peak GR.mmHg E/A ratio0.72D MVAcm2 Aortic Valve Aortic ValveAortic Stenosis V10.90m/Harvey Mean GR.4mmHg V21.30m/Harvey Peak GR.7mmHg LVOT Diameter2.2 (1.8-2.4cm)Doppler AVA2.63cm2 Pulmonic Valve V20.60m/s Other Information Quality : Rhythm : Tachycardia Conclusion NORMAL LV EF AND IS 65% NORMAL VALVES NO EFFUSION NORMAL RV FUNCTION AND SIZE
--- NOTE | 2025-08-16 23:01 | DVHINCON2 ---
Date Seen: Aug 16, 2025 Referring Physician MD Gus Reason for Consultation Sinus tachycardia History of Present Illness This is a Georgian-speaking 85-year-old male with a past medical history includes hypertension, dyslipidemia, recent COVID pneumonia, COPD, asthma, type 2 diabetes mellitus, thyroid disease, BPH, urinary incontinence, and dementia who presents to ED with a complaint of heart palpitations, chest pain, and cough. The patient's daughter, Tiesha, who is also his caregiver states that the patient began complaining of chest pain at approximately 12:00 p.m. on the day of ED arrival. Given that the patient has a history of dementia, he was unable to verbalize the characteristics of the chest pain. He reported "fast beating heart" to his daughter. She reports checking his vital signs at home and noticing that his pulse was 104 beats per minute while he was sitting in his recliner. At the time of assessment, the patient is only alert to self. History obtained from patient's daughter Tiesha. Initial twelve lead electrocardiogram found in patient's chart reveals sinus tachycardia with Q-waves in inferior leads. Patient is currently in normal sinus rhythm on satellite project site monitor. Initial troponin level on admission was negative. The patient's daughter Tiesha is his full-time caregiver at home. She mentions that the patient is wheelchair-bound. Patient was admitted to the hospital. I am asked to consult on this patient. Past Medical History Past medical history reviewed. No other significant than mentioned above. Past Surgical History Left knee replacement Cholecystectomy Allergies: Coded Allergies: Azithromycin (Verified Allergy, Severe, 08/12/25) Home Meds Reported Medications Pancreatic Enzymes (Creon) 12,000 [place], [address] UNT PO BIDWM, CAP 08/14/25 Multiple Vitamins W/ Minerals (Multivitamin) 1 Tab Tab, 1 TAB PO, TAB 08/14/25 Pantoprazole Sodium Sesquihydr (Pantoprazole Sodium) 40 Mg Tab, 40 MG PO, TAB 08/14/25 Alendronate Sodium (Alendronate Sodium) 70 Mg Tab, 70 MG PO Q7D, TAB 08/14/25 Rifaximin (Xifaxan) 550 Mg Tab, 1 TAB PO BID, #28 TAB 08/14/25 Pioglitazone Hydrochloride (PIOGLITAZONE HCL) 30 Mg Tab, 30 MG OR QPM, TAB 08/03/24 Trazodone Hcl (Trazodone Hcl) 50 Mg Tab, 50 MG PO QPM, MG 08/03/24 Omeprazole (Gnp Omeprazole) 20 Mg Tab, 20 MG PO QPM, TAB 08/03/24 Donepezil Hydrochloride (DONEPEZIL HCL) 10 Mg Tab, 10 MG PO QPM for 30 Days, MG 08/03/24 Lovastatin (Lovastatin) 20 Mg Tab, 1 TAB PO DAILY, #30 TAB 5 Refills 08/03/24 Canagliflozin (INVOKANA) 300 Mg Tab, 300 MG OR DAILY, TAB 08/03/24 Tamsulosin Hcl (Tamsulosin Hcl) 0.4 Mg Cap, 0.4 MG PO QPM for 30 Days, MG 08/03/24 Levothyroxine Sodium (Levothyroxine Sodium) 25 Mcg Tab, 25 MCG PO QAM, MCG 08/03/24 Megestrol Acetate (Megestrol Acetate) 40 Mg Tab, 40 MG PO DAILY 08/03/24 Memantine Hydrochloride (Memantine HCl) 10 Mg Tab, 10 MG PO BID, TAB 08/03/24 Liothyronine Sodium (Liothyronine Sodium) 5 Mcg Tab, 5 MCG PO BID, TAB 08/03/24 Discontinued Reported Medications Metformin Hydrochloride (Metformin Hcl) 500 Mg Tab, 1000 MG PO BID for 30 Days, MG 08/03/24 Current Medications Current Medications Medications (Trade) Dose Ordered Sig/Alexandru Route PRN Reason Start Time Stop Time Status Last Admin Rifaximin (Xifaxan) 550 mg BID PO 08/15/25 22:00 08/16/25 09:14 Nystatin (Mycostatin (Mouth-Throat)) 5 ml DAILY MT 08/16/25 10:00 08/16/25 09:13 Review of Systems Constitutional: No symptom reported Ears, Nose, & Throat: No symptom reported Eyes: No symptom reported Neurological: No symptoms reported Pulmonary/Respiratory: Off Cardiovascular: Chest pain, palpitations Gastrointestinal: No symptom reported Genitourinary: No symptom reported Musculoskeletal: No symptom reported Skin: No symptom reported Psychiatric: No symptom reported Endocrine: No symptom reported Hematologic/Lymphatic: No symptom reported Vital Signs Vital Signs Date Time Temp Pulse Resp B/P (MAP) Pulse Ox O2 Delivery O2 Flow Rate FiO2 08/16/25 13:00 98.4 89 17 105/74 (84) 99 98.4 08/16/25 07:45 Room Air* 0 21 Physical Exam GENERAL: Confused. No acute distress. EYES: PERRL, EOMI. Anicteric. HENT: Moist mucous membranes. LUNGS: Clear to auscultation bilaterally. CARDIOVASCULAR: Regular rate and rhythm. ABDOMEN: Soft, nontender and nondistended. EXTREMITIES: No edema. SKIN: Warm, dry. Labs/Diagnostic Data Labs Test 08/16/25 13:00 08/16/25 11:35 08/16/25 04:57 08/15/25 03:45 Range/Units POC Glucose 214 H 70-106 mg/dl Creatinine 0.77 0.700-1.30 mg/dL Glomerular Filtration Rate Calc 89 >90 mL/min White Blood Count 6.6 4.4-10.8 10^3/uL Red Blood Count 3.61 L 4.5-5.90 10^6/uL Hemoglobin 11.6 L 13.5-17.5 g/dL Hematocrit 33.5 L 41.0-53.0 % Mean Corpuscular Volume 92.8 80.0-100.0 fL Mean Corpuscular Hemoglobin 32.2 H 28.0-32.0 pg Mean Corpuscular Hemoglobin Concent 34.7 32.0-36.0 g/dL Red Cell Distribution Width 14.7 H 11.8-14.3 % Platelet Count 118 L 140-450 10^3/uL Mean Platelet Volume 10.1 6.9-10.8 fL Neutrophils (%) (Auto) 68.8 37.0-80.0 % Lymphocytes (%) (Auto) 20.2 10.0-50.0 % Monocytes (%) (Auto) 6.2 0.0-12.0 % Eosinophils (%) (Auto) 3.8 0.0-7.0 % Basophils (%) (Auto) 1.0 0.0-2.0 % Neutrophils # (Auto) 4.5 1.6-8.6 10 ^3/uL Lymphocytes # (Auto) 1.3 0.4-5.4 10 ^3/uL Monocytes # (Auto) 0.4 0-1.3 10 ^3/uL Eosinophils # (Auto) 0.2 0-0.8 10 ^3/uL Basophils # (Auto) 0.1 0-0.2 10 ^3/uL Nucleated Red Blood Cells 0.2 % Vancomycin Level Trough 15.7 H 5-10 ug/mL Test 08/14/25 05:30 08/13/25 06:40 08/13/25 02:20 08/12/25 23:20 Range/Units Sodium Level 140 136-145 mmol/L Potassium Level 3.9 3.5-5.1 mmol/L Chloride Level 109 H 98-107 mmol/L Carbon Dioxide Level 19 L 20-31 mmol/L Anion Gap 12 5-15 Blood Urea Nitrogen 10 9-23 mg/dL BUN/Creatinine Ratio 11.9 10.0-20.0 Serum Glucose 187 H 74-106 mg/dL Calcium Level 8.5 L 8.7-10.4 mg/dL Total Bilirubin 0.5 0.2-1.0 mg/dL Aspartate Amino Transferase (AST) 12 L 13-40 U/L Alanine Aminotransferase (ALT) 13 7-40 U/L Alkaline Phosphatase 66 46-116 U/L Total Protein 5.6 L 5.7-8.2 g/dL Albumin 3.0 L 3.2-4.8 g/dL D-Dimer, Quantitative 2.86 H 0.0-0.49 mg/L FEU Hemoglobin A1c 6.0 H <5.7 % A1C Lactic Acid Level 1.4 0.4-2.0 mmol/L B-Type Natriuretic Peptide 81.66 0-100 pg/mL Influenza Type A Antigen Negative Negative Influenza Type B Antigen Negative Negative SARS-CoV-2 Antigen (Rapid) Negative NEGATIVE Microbiology Date/Time Source Procedure Growth Status 08/13/25 02:20 Blood Blood Culture - Preliminary NO GROWTH AFTER 72 HOURS OF INCUBATION. Resulted Assessment Sinus tachycardia. Rule out structural heart disease. Hypertension. Dyslipidemia. COPD. Asthma . Type 2 diabetes mellitus. Thyroid disease. BPH. Urinary incontinence. Dementia. Wheelchair-bound. Plan/Recommendation I agree with your ongoing assessment and care of plan. Patient has been seen by Alyce Anderson NP on my behalf, her and I discussed the plan with the patient. We will proceed with obtaining a transthoracic echocardiogram to evaluate card iac function. Patient noted to have episodes of sinus tachycardia on satellite project site monitor. Sinus tachycardia in the setting of severe sepsis with pneumonia. Antibiotics per primary care team. Continue with close cardiac surveillance and monitor for any cardiac arrhythmias. Additional plan as per the hospital course. Plan discussed with: Patient NYHA Physical activity limitations: NA Date of Service: Aug 16, 2025 Billing Provider: KATHIA ELISE MD Cardiology Common Codes: [id number] INP/OBS CARE (High) Cardiology Consultation Codes: [id number] CONSULT <45MIN KATHIA ELISE MD Aug 16, 2025 13:27
[2025-08-17] VITALS (8 sets, daily range): BP systolic 97–117; BP diastolic 45–79; PULSE 80–102; RESP 16–20; TEMP 98.2–98.8; O2SAT 95–98
--- NOTE | 2025-08-17 11:43 | DVHPN2 ---
Reviewed: Care Plan, H&P, Labs, Medications, Previous Orders, Radiology Changes from previous H/P or p: No Changes Objective Vitals Vital Signs Date Time Temp Pulse Resp B/P (MAP) Pulse Ox O2 Delivery O2 Flow Rate FiO2 08/17/25 09:07 102 111/63 08/17/25 09:00 98.2 17 97 98.2 08/17/25 08:00 Room Air* 0 21 Intake/Output Intake and Output 08/17/25 07:00 Intake Total 1160 ml Balance 1160 ml Intake Oral 660 ml IV Total 500 ml # Voids 4 # Bowel Movements 2 Medications Current Medications Medications Dose Ordered Sig/Alexandru Route Start Time Stop Time Status Last Admin Dose Admin Albuterol 2.5 mg Q4HPRN PRN NEB 08/13/25 01:45 Cancel Vancomycin HCl 0 ml @ 0 mls/hr UD IV 08/13/25 01:45 Piperacillin Sod/ Tazobactam Sod 100 ml @ 25 mls/hr Q8HR IV 08/13/25 06:00 08/17/25 05:53 25 MLS/HR Diagnostic Test (Pha) 1 strip IQ4HR 08/13/25 04:00 08/17/25 08:00 1 STRIP Insulin Human Regular IQ4HR SC 08/13/25 04:00 08/17/25 08:00 2 UNITS Dextrose 50 ml UD PRN IV 08/13/25 01:45 Ondansetron HCl 4 mg Q4HP PRN IV 08/13/25 02:30 Docusate Sodium 100 mg BIDPRN PRN PO 08/13/25 02:30 Multivitamins 1 tab DAILY PO 08/13/25 10:00 08/17/25 09:07 1 TAB Acetaminophen 650 mg Q6HP PRN PO 08/13/25 02:30 Morphine Sulfate 2 mg Q4HPRN PRN IV 08/13/25 02:30 Nitroglycerin 0.4 mg Q5MINP PRN SL 08/13/25 02:30 Morphine Sulfate 2 mg Q30M PRN IV 08/13/25 02:30 Pantoprazole Sodium 40 mg DAILY@0600 PO 08/13/25 06:00 08/17/25 05:53 40 MG Levothyroxine Sodium 25 mcg QAM PO 08/13/25 07:00 08/17/25 05:53 25 MCG Tamsulosin HCl 0.4 mg QPM PO 08/13/25 18:00 08/16/25 17:51 0.4 MG Donepezil HCl 10 mg QPM PO 08/13/25 18:00 08/16/25 17:51 10 MG Patient Own Medication 5 mcg BID PO 08/13/25 10:00 08/17/25 09:08 5 MCG Patient Own Medication 1 tab DAILY PO 08/13/25 10:00 08/17/25 09:08 1 TAB Metoprolol Succinate 25 mg DAILY PO 08/13/25 10:00 08/17/25 09:07 25 MG Vancomycin HCl 100 ml @ 100 mls/hr Q12H IV 08/13/25 17:00 08/17/25 04:39 100 MLS/HR Rifaximin 550 mg BID PO 08/15/25 22:00 08/17/25 09:07 550 MG Nystatin 5 ml DAILY MT 08/16/25 10:00 08/17/25 09:06 5 ML Laboratory Results Laboratory Tests 08/14/25 05:30 08/15/25 03:45 08/16/25 04:57 Microbiology Microbiology Date/Time Source Procedure Growth Status 08/13/25 02:20 Blood Blood Culture - Preliminary NO GROWTH AFTER 72 HOURS OF INCUBATION. Resulted Labs and/or images reviewed: Labs reviewed by me, Image(s) reviewed by me Assessment/Plan Assessment/Plan 1. Severe sepsis with lactic acidosis lactate 4.8, tachycardia, metabolic acidosis, 2. Community-acquired pneumonia vs post-COVID pneumonia bilateral interstitial markings, persistent cough, recent COVID pneumonia. Zosyn vancomycin 3. Metabolic acidosis high anion gap, mild (likely lactic). 4. Anemia of chronic disease (Hgb 12.3, low RBC). 5. Alzheimers dementia, stage 3 6. 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 7. Hypothyroidism (on replacement therapy). 8. 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 9. COPD/asthma in acute exacerbation. 10. Chronic sacral pressure ulcer, healed scar, risk for recurrence. 11. BPH with urinary incontinence. 12. Failure to thrive / protein-calorie malnutrition risk. 13. History of COVID pneumonia treated at [facility] 07-31-25 to 08-07-25 Patient's daughter and power of regulatory attorney Tiesha [phone] bedside Rapid flu test negative COVID test neg Blood Cultures negative Time spent 60 minutes Advanced care planning time 20 minutes Patient is full code Physical therapy ordered We will DC home on home health Plan discussed with: Patient My Orders Orders - MICHAEL LOWE MD Procedure Category Date Status Time * Sericulture Teacher CONS 08/17/25 Transmitted Consult * Picc Line Consult CONS 08/17/25 Transmitted 11:41 Date of Service: Aug 17, 2025 Billing Provider: MICHAEL LOWE MD Common Visit Codes: [id number] INP/OBS CARE(HIGH) MICHAEL LOWE MD Aug 17, 2025 11:43
--- NOTE | 2025-08-17 20:11 | DVHPN2 ---
Progress Note - Dictate Date Seen: Aug 17, 2025 Medical Necessity Reason Pt with a Central, PICC or Fol: No Subjective Patient was seen and evaluated in follow up. Patient is confused. Patient's daughter is present at bedside and is agreeable for SNF for IV antibiotics. BS are in the 200's. Telemetry reviewed. vital signs Vital Sign Date Time Temp Pulse Resp B/P (MAP) Pulse Ox O2 Delivery O2 Flow Rate FiO2 08/17/25 17:00 98.2 90 18 98/60 (73) 97 98.2 08/17/25 08:00 Room Air* 0 21 Total Intake and Output 08/16/25 08/16/25 08/17/25 15:00 23:00 07:00 Intake Total 100 ml 500 ml 560 ml Balance 100 ml 500 ml 560 ml medications Current Medications Medications Dose Ordered Sig/Alexandru Route Start Time Stop Time Status Last Admin Dose Admin Albuterol 2.5 mg Q4HPRN PRN NEB 08/13/25 01:45 Cancel Vancomycin HCl 0 ml @ 0 mls/hr UD IV 08/13/25 01:45 Piperacillin Sod/ Tazobactam Sod 100 ml @ 25 mls/hr Q8HR IV 08/13/25 06:00 08/17/25 14:00 25 MLS/HR Diagnostic Test (Pha) 1 strip IQ4HR 08/13/25 04:00 08/17/25 16:00 1 STRIP Insulin Human Regular IQ4HR SC 08/13/25 04:00 08/17/25 16:00 4 UNITS Dextrose 50 ml UD PRN IV 08/13/25 01:45 Ondansetron HCl 4 mg Q4HP PRN IV 08/13/25 02:30 Docusate Sodium 100 mg BIDPRN PRN PO 08/13/25 02:30 Multivitamins 1 tab DAILY PO 08/13/25 10:00 08/17/25 09:07 1 TAB Acetaminophen 650 mg Q6HP PRN PO 08/13/25 02:30 Morphine Sulfate 2 mg Q4HPRN PRN IV 08/13/25 02:30 Nitroglycerin 0.4 mg Q5MINP PRN SL 08/13/25 02:30 Morphine Sulfate 2 mg Q30M PRN IV 08/13/25 02:30 Pantoprazole Sodium 40 mg DAILY@0600 PO 08/13/25 06:00 08/17/25 05:53 40 MG Levothyroxine Sodium 25 mcg QAM PO 08/13/25 07:00 08/17/25 05:53 25 MCG Tamsulosin HCl 0.4 mg QPM PO 08/13/25 18:00 08/17/25 17:38 0.4 MG Donepezil HCl 10 mg QPM PO 08/13/25 18:00 08/17/25 17:38 10 MG Patient Own Medication 5 mcg BID PO 08/13/25 10:00 08/17/25 09:08 5 MCG Patient Own Medication 1 tab DAILY PO 08/13/25 10:00 08/17/25 09:08 1 TAB Metoprolol Succinate 25 mg DAILY PO 08/13/25 10:00 08/17/25 09:07 25 MG Vancomycin HCl 100 ml @ 100 mls/hr Q12H IV 08/13/25 17:00 08/17/25 17:39 100 MLS/HR Rifaximin 550 mg BID PO 08/15/25 22:00 08/17/25 09:07 550 MG Nystatin 5 ml DAILY MT 08/16/25 10:00 08/17/25 09:06 5 ML objective GENERAL: Confused. No acute distress. EYES: PERRL, EOMI. Anicteric. HENT: Moist mucous membranes. LUNGS: Clear to auscultation bilaterally. CARDIOVASCULAR: Regular rate and rhythm. ABDOMEN: Soft, nontender and nondistended. EXTREMITIES: No edema. SKIN: Warm, dry. laboratory and microbiology Laboratory Tests 08/16/25 04:57 08/15/25 03:45 08/14/25 05:30 Test 08/14/25 05:30 Range/Units Serum Glucose 187 H 74-106 mg/dL Problem List Sinus tachycardia. Rule out structural heart disease. Hypertension. Dyslipidemia. COPD. Asthma . Type 2 diabetes mellitus. Thyroid disease. BPH. Urinary incontinence. Dementia. Wheelchair-bound. Assessment/Plan Continued all current supportive medical care. Metoprolol. Morphine for pain management. IV antibiotics as ordered. GI prophylactics. Nitro SL. Additional plan as per the hospital course. Plan discussed with: KATHIA Murillo MD Aug 17, 2025 19:28
[2025-08-18] VITALS (8 sets, daily range): BP systolic 108–137; BP diastolic 51–77; PULSE 73–101; RESP 18–21; TEMP 97.4–99.1; O2SAT 97–99
[2025-08-18 10:49] LABS: Hematocrit 36.5 % (41.0-53.0); Hemoglobin 11.8 g/dL (13.5-17.5); Mean Corpuscular Hemoglobin 31.4 pg (28.0-32.0); Mean Corpuscular Volume 96.8 fL (80.0-100.0); Nucleated Red Blood Cells % 0.4 %
[2025-08-18 11:08] LABS: INR 1.08 (0.9-1.15); Partial Thromboplastin Time 28.5 SEC (24.5-34.5); Prothrombin Time 11.4 sec (9.3-11.8)
--- NOTE | 2025-08-18 12:32 | DVHPN2 ---
Reviewed: Care Plan, H&P, Labs, Medications, Previous Orders, Radiology Changes from previous H/P or p: No Changes Objective Vitals Vital Signs Date Time Temp Pulse Resp B/P (MAP) Pulse Ox O2 Delivery O2 Flow Rate FiO2 08/18/25 12:24 98.7 93 20 110/51 (70) 99 98.7 08/18/25 08:05 Room Air* 0 21 Intake/Output Intake and Output 08/18/25 07:00 Intake Total 1730 ml Balance 1730 ml Intake Oral 1430 ml IV Total 300 ml # Voids 4 # Bowel Movements 1 Medications Current Medications Medications Dose Ordered Sig/Alexandru Route Start Time Stop Time Status Last Admin Dose Admin Albuterol 2.5 mg Q4HPRN PRN NEB 08/13/25 01:45 Cancel Vancomycin HCl 0 ml @ 0 mls/hr UD IV 08/13/25 01:45 Piperacillin Sod/ Tazobactam Sod 100 ml @ 25 mls/hr Q8HR IV 08/13/25 06:00 08/18/25 05:56 25 MLS/HR Diagnostic Test (Pha) 1 strip IQ4HR 08/13/25 04:00 08/18/25 12:22 1 STRIP Insulin Human Regular IQ4HR SC 08/13/25 04:00 08/18/25 12:23 3 UNITS Dextrose 50 ml UD PRN IV 08/13/25 01:45 Ondansetron HCl 4 mg Q4HP PRN IV 08/13/25 02:30 Docusate Sodium 100 mg BIDPRN PRN PO 08/13/25 02:30 Multivitamins 1 tab DAILY PO 08/13/25 10:00 08/18/25 10:07 1 TAB Acetaminophen 650 mg Q6HP PRN PO 08/13/25 02:30 Morphine Sulfate 2 mg Q4HPRN PRN IV 08/13/25 02:30 Nitroglycerin 0.4 mg Q5MINP PRN SL 08/13/25 02:30 Morphine Sulfate 2 mg Q30M PRN IV 08/13/25 02:30 Pantoprazole Sodium 40 mg DAILY@0600 PO 08/13/25 06:00 08/18/25 05:52 40 MG Levothyroxine Sodium 25 mcg QAM PO 08/13/25 07:00 08/18/25 05:52 25 MCG Tamsulosin HCl 0.4 mg QPM PO 08/13/25 18:00 08/17/25 17:38 0.4 MG Donepezil HCl 10 mg QPM PO 08/13/25 18:00 08/17/25 17:38 10 MG Patient Own Medication 5 mcg BID PO 08/13/25 10:00 08/18/25 10:07 5 MCG Patient Own Medication 1 tab DAILY PO 08/13/25 10:00 08/18/25 10:07 1 TAB Metoprolol Succinate 25 mg DAILY PO 08/13/25 10:00 08/18/25 10:09 25 MG Vancomycin HCl 100 ml @ 100 mls/hr Q12H IV 08/13/25 17:00 08/18/25 04:37 100 MLS/HR Rifaximin 550 mg BID PO 08/15/25 22:00 08/18/25 10:14 550 MG Nystatin 5 ml DAILY MT 08/16/25 10:00 08/18/25 09:43 5 ML Laboratory Results Laboratory Tests 08/14/25 05:30 08/18/25 07:31 08/18/25 10:30 Coagulation Test 08/18/25 10:30 Prothrombin Time 11.4 sec (9.3-11.8) Prothrombin Time INR 1.08 (0.9-1.15) Activated Partial Thromboplast Time 28.5 SEC (24.5-34.5) Microbiology Microbiology Date/Time Source Procedure Growth Status 08/13/25 02:20 Blood Blood Culture - Final NO GROWTH AFTER 5 DAYS OF INCUBATION. Complete Assessment/Plan Assessment/Plan 1. Severe sepsis with lactic acidosis lactate 4.8, tachycardia, metabolic acidosis, 2. Community-acquired pneumonia vs post-COVID pneumonia bilateral interstitial markings, persistent cough, recent COVID pneumonia. Zosyn vancomycin 3. Metabolic acidosis high anion gap, mild (likely lactic). 4. Anemia of chronic disease (Hgb 12.3, low RBC). 5. Alzheimers dementia, stage 3 6. 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 7. Hypothyroidism (on replacement therapy). 8. 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 9. COPD/asthma in acute exacerbation. 10. Chronic sacral pressure ulcer, healed scar, risk for recurrence. 11. BPH with urinary incontinence. 12. Failure to thrive / protein-calorie malnutrition risk. 13. History of COVID pneumonia treated at [facility] 07-31-25 to 08-07-25 Patient's daughter and power of civil rights attorney Tiesha [phone] bedside Rapid flu test negative COVID test neg Blood Cultures negative Time spent 60 minutes Advanced care planning time 20 minutes Patient is full code Physical therapy ordered damper worker Sue and I spoke with the daughter Tiesha, per her wishes being discharged to [facility] facility for IV antibiotics for two weeks Plan discussed with: Patient Date of Service: Aug 18, 2025 Billing Provider: MICHAEL LOWE MD Common Visit Codes: [id number] INP/OBS CARE(HIGH) MICHAEL LOWE MD Aug 18, 2025 12:32
[2025-08-18] MEDS: LIDOCAINE 1% (LOCAL ANESTH.) PF 5ml SDV ID ONE (17:50)
[2025-08-18] MEDS: SODIUM CHLOR 0.9% PF (SALINE LOCK) 10ML VIAL/SYR IV SCH (21:45)
--- NOTE | 2025-08-18 23:20 | DVHPN2 ---
Progress Note - Dictate Date Seen: Aug 18, 2025 Medical Necessity Reason Pt with a Central, PICC or Fol: No Subjective Patient was seen and evaluated in follow up. No overnight events. Patient remains confused. Patient is pending PICC line placement. BS are WNL. Telemetry reviewed. vital signs Vital Sign Date Time Temp Pulse Resp B/P (MAP) Pulse Ox O2 Delivery O2 Flow Rate FiO2 08/18/25 12:24 98.7 93 20 110/51 (70) 99 98.7 08/18/25 08:05 Room Air* 0 21 Total Intake and Output 08/17/25 08/17/25 08/18/25 15:00 23:00 07:00 Intake Total 930 ml 800 ml Balance 930 ml 800 ml medications Current Medications Medications Dose Ordered Sig/Alexandru Route Start Time Stop Time Status Last Admin Dose Admin Albuterol 2.5 mg Q4HPRN PRN NEB 08/13/25 01:45 Cancel Vancomycin HCl 0 ml @ 0 mls/hr UD IV 08/13/25 01:45 Piperacillin Sod/ Tazobactam Sod 100 ml @ 25 mls/hr Q8HR IV 08/13/25 06:00 08/18/25 05:56 25 MLS/HR Diagnostic Test (Pha) 1 strip IQ4HR 08/13/25 04:00 08/18/25 12:22 1 STRIP Insulin Human Regular IQ4HR SC 08/13/25 04:00 08/18/25 12:23 3 UNITS Dextrose 50 ml UD PRN IV 08/13/25 01:45 Ondansetron HCl 4 mg Q4HP PRN IV 08/13/25 02:30 Docusate Sodium 100 mg BIDPRN PRN PO 08/13/25 02:30 Multivitamins 1 tab DAILY PO 08/13/25 10:00 08/18/25 10:07 1 TAB Acetaminophen 650 mg Q6HP PRN PO 08/13/25 02:30 Morphine Sulfate 2 mg Q4HPRN PRN IV 08/13/25 02:30 Nitroglycerin 0.4 mg Q5MINP PRN SL 08/13/25 02:30 Morphine Sulfate 2 mg Q30M PRN IV 08/13/25 02:30 Pantoprazole Sodium 40 mg DAILY@0600 PO 08/13/25 06:00 08/18/25 05:52 40 MG Levothyroxine Sodium 25 mcg QAM PO 08/13/25 07:00 08/18/25 05:52 25 MCG Tamsulosin HCl 0.4 mg QPM PO 08/13/25 18:00 08/17/25 17:38 0.4 MG Donepezil HCl 10 mg QPM PO 08/13/25 18:00 08/17/25 17:38 10 MG Patient Own Medication 5 mcg BID PO 08/13/25 10:00 08/18/25 10:07 5 MCG Patient Own Medication 1 tab DAILY PO 08/13/25 10:00 08/18/25 10:07 1 TAB Metoprolol Succinate 25 mg DAILY PO 08/13/25 10:00 08/18/25 10:09 25 MG Vancomycin HCl 100 ml @ 100 mls/hr Q12H IV 08/13/25 17:00 08/18/25 04:37 100 MLS/HR Rifaximin 550 mg BID PO 08/15/25 22:00 08/18/25 10:14 550 MG Nystatin 5 ml DAILY MT 08/16/25 10:00 08/18/25 09:43 5 ML objective GENERAL: Confused. No acute distress. EYES: PERRL, EOMI. Anicteric. HENT: Moist mucous membranes. LUNGS: Clear to auscultation bilaterally. CARDIOVASCULAR: Regular rate and rhythm. ABDOMEN: Soft, nontender and nondistended. EXTREMITIES: No edema. SKIN: Warm, dry. laboratory and microbiology Laboratory Tests 08/18/25 10:30 08/18/25 07:31 08/14/25 05:30 Test 08/14/25 05:30 Range/Units Serum Glucose 187 H 74-106 mg/dL Problem List Sinus tachycardia. Rule out structural heart disease. Hypertension. Dyslipidemia. COPD. Asthma . Type 2 diabetes mellitus. Thyroid disease. BPH. Urinary incontinence. Dementia. Wheelchair-bound. Assessment/Plan Continued all current supportive medical care. Metoprolol. Morphine for pain management. IV antibiotics as ordered. GI prophylactics. Nitro SL. Additional plan as per the hospital course. Plan discussed with: KATHIA Murillo MD Aug 18, 2025 14:08
[2025-08-19] VITALS (9 sets, daily range): BP systolic 116–132; BP diastolic 55–94; PULSE 80–116; RESP 18–20; TEMP 97.4–97.7; O2SAT 96–100
[2025-08-19] MEDS: VANCOMYCIN 500mg/100mL 100 ML IV SCH (04:59)
--- NOTE | 2025-08-19 13:08 | DVHPN2 ---
Reviewed: Care Plan, H&P, Labs, Medications, Previous Orders, Radiology Changes from previous H/P or p: No Changes Objective Vitals Vital Signs Date Time Temp Pulse Resp B/P (MAP) Pulse Ox O2 Delivery O2 Flow Rate FiO2 08/19/25 09:00 97.7 80 20 129/81 (97) 96 97.7 08/19/25 07:51 Room Air* 0 21 Intake/Output Intake and Output 08/19/25 07:00 Intake Total 1065 ml Balance 1065 ml Intake Oral 565 ml IV Total 500 ml # Voids 6 # Bowel Movements 2 Medications Current Medications Medications Dose Ordered Sig/Alexandru Route Start Time Stop Time Status Last Admin Dose Admin Albuterol 2.5 mg Q4HPRN PRN NEB 08/13/25 01:45 Cancel Vancomycin HCl 0 ml @ 0 mls/hr UD IV 08/13/25 01:45 Piperacillin Sod/ Tazobactam Sod 100 ml @ 25 mls/hr Q8HR IV 08/13/25 06:00 08/19/25 06:03 25 MLS/HR Diagnostic Test (Pha) 1 strip IQ4HR 08/13/25 04:00 08/19/25 11:57 1 STRIP Insulin Human Regular IQ4HR SC 08/13/25 04:00 08/19/25 12:00 3 UNITS Dextrose 50 ml UD PRN IV 08/13/25 01:45 Ondansetron HCl 4 mg Q4HP PRN IV 08/13/25 02:30 Docusate Sodium 100 mg BIDPRN PRN PO 08/13/25 02:30 Multivitamins 1 tab DAILY PO 08/13/25 10:00 08/19/25 08:29 1 TAB Acetaminophen 650 mg Q6HP PRN PO 08/13/25 02:30 Morphine Sulfate 2 mg Q4HPRN PRN IV 08/13/25 02:30 Nitroglycerin 0.4 mg Q5MINP PRN SL 08/13/25 02:30 Morphine Sulfate 2 mg Q30M PRN IV 08/13/25 02:30 Pantoprazole Sodium 40 mg DAILY@0600 PO 08/13/25 06:00 08/19/25 06:03 40 MG Levothyroxine Sodium 25 mcg QAM PO 08/13/25 07:00 08/19/25 06:03 25 MCG Tamsulosin HCl 0.4 mg QPM PO 08/13/25 18:00 08/18/25 17:31 0.4 MG Donepezil HCl 10 mg QPM PO 08/13/25 18:00 08/18/25 17:31 10 MG Patient Own Medication 5 mcg BID PO 08/13/25 10:00 08/19/25 08:29 5 MCG Patient Own Medication 1 tab DAILY PO 08/13/25 10:00 08/19/25 08:30 1 TAB Metoprolol Succinate 25 mg DAILY PO 08/13/25 10:00 08/19/25 08:28 25 MG Rifaximin 550 mg BID PO 08/15/25 22:00 08/19/25 08:29 550 MG Nystatin 5 ml DAILY MT 08/16/25 10:00 08/19/25 08:27 5 ML Sodium Chloride 10 ml QSHIFT@10,22 IV 08/18/25 22:00 08/19/25 08:31 10 ML Vancomycin HCl 100 ml @ 200 mls/hr Q12H IV 08/19/25 05:00 08/19/25 04:59 200 MLS/HR Laboratory Results Laboratory Tests 08/14/25 05:30 08/18/25 07:31 08/18/25 10:30 Microbiology Microbiology Date/Time Source Procedure Growth Status 08/13/25 02:20 Blood Blood Culture - Final NO GROWTH AFTER 5 DAYS OF INCUBATION. Complete Labs and/or images reviewed: Labs reviewed by me, Image(s) reviewed by me Assessment/Plan Assessment/Plan 1. Severe sepsis with lactic acidosis lactate 4.8, tachycardia, metabolic acidosis, 2. Community-acquired pneumonia vs post-COVID pneumonia bilateral interstitial markings, persistent cough, recent COVID pneumonia. Zosyn vancomycin 3. Metabolic acidosis high anion gap, mild (likely lactic). 4. Anemia of chronic disease (Hgb 12.3, low RBC). 5. Alzheimers dementia, stage 3 6. 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 7. Hypothyroidism (on replacement therapy). 8. 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 9. COPD/asthma in acute exacerbation. 10. Chronic sacral pressure ulcer, healed scar, risk for recurrence. 11. BPH with urinary incontinence. 12. Failure to thrive / protein-calorie malnutrition risk. 13. History of COVID pneumonia treated at [facility] 07-31-25 to 08-07-25 Patient's daughter and power of warehouse assistant Tiesha [phone] bedside Rapid flu test negative COVID test neg Blood Cultures negative Time spent 60 minutes Advanced care planning time 20 minutes Patient is full code Physical therapy ordered rubber factory worker Sue and I spoke with the daughter Tiesha, per her wishes being discharged to [facility]dc facility for IV antibiotics for two weeks Plan discussed with: Patient My Orders Orders - MICHAEL LOWE MD Procedure Category Date Status Time Nursing Protocol Picc [facility] 08/18/25 In Process 17:43 Change Dressing Prn [facility] 08/18/25 In Process 17:43 Sodium Chloride Lock PHA 08/18/25 In Process (Saline Lock Ns) 22:00 Do Not Use Picc For [facility] 08/18/25 In Process Blood Cult 17:43 May Draw Blood From [facility] 08/18/25 In Process Picc 17:43 Ok To Use Picc [facility] 08/18/25 In Process 17:43 Change Picc Dressing [facility] 08/18/25 In Process Q7 Days 17:43 * Dietary Consult CONS 08/19/25 Transmitted 11:19 Date of Service: Aug 19, 2025 Billing Provider: MICHAEL LOWE MD Common Visit Codes: [id number] INP/OBS CARE(HIGH) MICHAEL LOWE MD Aug 19, 2025 13:08
--- NOTE | 2025-08-19 13:14 | DVHDS2 ---
Discharge Summary Date of Admission Aug 13, 2025 at 02:27 Date of Discharge: Aug 19, 2025 Admitting Diagnosis Generalized weakness Wounds: None Labs/Diagnostic Data: Laboratory Results Test 08/19/25 11:53 08/18/25 16:25 08/18/25 10:30 08/18/25 07:31 POC Glucose 190 mg/dl (70-106) Vancomycin Level Trough 21.3 ug/mL (5-10) White Blood Count 6.1 10^3/uL (4.4-10.8) Red Blood Count 3.77 10^6/uL (4.5-5.90) Hemoglobin 11.8 g/dL (13.5-17.5) Hematocrit 36.5 % (41.0-53.0) Mean Corpuscular Volume 96.8 fL (80.0-100.0) Mean Corpuscular Hemoglobin 31.4 pg (28.0-32.0) Mean Corpuscular Hemoglobin Concent 32.4 g/dL (32.0-36.0) Red Cell Distribution Width 15.5 % (11.8-14.3) Platelet Count 148 10^3/uL (140-450) Mean Platelet Volume 9.6 fL (6.9-10.8) Neutrophils (%) (Auto) 68.7 % (37.0-80.0) Lymphocytes (%) (Auto) 19.9 % (10.0-50.0) Monocytes (%) (Auto) 6.5 % (0.0-12.0) Eosinophils (%) (Auto) 4.1 % (0.0-7.0) Basophils (%) (Auto) 0.8 % (0.0-2.0) Neutrophils # (Auto) 4.2 10 ^3/uL (1.6-8.6) Lymphocytes # (Auto) 1.2 10 ^3/uL (0.4-5.4) Monocytes # (Auto) 0.4 10 ^3/uL (0-1.3) Eosinophils # (Auto) 0.3 10 ^3/uL (0-0.8) Basophils # (Auto) 0 10 ^3/uL (0-0.2) Nucleated Red Blood Cells 0.4 % Prothrombin Time 11.4 sec (9.3-11.8) Prothrombin Time INR 1.08 (0.9-1.15) Activated Partial Thromboplast Time 28.5 SEC (24.5-34.5) Creatinine 0.96 mg/dL (0.700-1.30) Glomerular Filtration Rate Calc 78 mL/min (>90) Test 08/16/25 15:13 08/16/25 04:57 08/14/25 05:30 08/13/25 06:40 Troponin I High Sensitivity 11 ng/L (</=54) Magnesium Level 1.7 mg/dL (1.6-2.6) Triglycerides Level 144 mg/dL (< 150) Cholesterol Level 137 mg/dL (< 200) LDL Cholesterol 87 mg/dL (< 100) HDL Cholesterol 34 mg/dL (40-59) Thyroid Stimulating Hormone (TSH) 1.43 uIU/mL (0.55-4.78) Sodium Level 140 mmol/L (136-145) Potassium Level 3.9 mmol/L (3.5-5.1) Chloride Level 109 mmol/L (98-107) Carbon Dioxide Level 19 mmol/L (20-31) Anion Gap 12 (5-15) Blood Urea Nitrogen 10 mg/dL (9-23) BUN/Creatinine Ratio 11.9 (10.0-20.0) Serum Glucose 187 mg/dL (74-106) Calcium Level 8.5 mg/dL (8.7-10.4) Total Bilirubin 0.5 mg/dL (0.2-1.0) Aspartate Amino Transferase (AST) 12 U/L (13-40) Alanine Aminotransferase (ALT) 13 U/L (7-40) Alkaline Phosphatase 66 U/L (46-116) Total Protein 5.6 g/dL (5.7-8.2) Albumin 3.0 g/dL (3.2-4.8) D-Dimer, Quantitative 2.86 mg/L FEU (0.0-0.49) Hemoglobin A1c 6.0 % A1C (<5.7) Test 08/13/25 02:20 08/12/25 23:20 Lactic Acid Level 1.4 mmol/L (0.4-2.0) B-Type Natriuretic Peptide 81.66 pg/mL (0-100) Influenza Type A Antigen Negative (Negative) Influenza Type B Antigen Negative (Negative) SARS-CoV-2 Antigen (Rapid) Negative (NEGATIVE) Other Laboratory Tests 08/18/25 10:30 08/18/25 07:31 08/14/25 05:30 Brief Hx & Hospital Course: 5-year-old male with a history of Alzheimer dementia type 2 diabetes hypothyroidism cirrhosis COPD history of COVID in the past brought in by family for generalized weakness and altered mental status. found to be in severe sepsis secondary to community-acquired pneumonia treated with the Zosyn and vancomycin tachycardia secondary to sepsis resolved. Hemoglobin 12.3. Patient's daughter and POA Tiesha bedside and patient being discharged to senior living facility for two weeks of IV antibiotics Flu test negative COVID test negative blood cultures negative Patient will receive two weeks of IV antibiotics in the senior living facility Zosyn 3.375 g IV q.12h Vancomycin 1 g IV daily Operations or Procedures none Condition at Discharge: Fair Final Diagnosis/Problems List Assessment/Plan 1. Severe sepsis with lactic acidosis lactate 4.8, tachycardia, metabolic acidosis, 2. Community-acquired pneumonia vs post-COVID pneumonia bilateral interstitial markings, persistent cough, recent COVID pneumonia. Zosyn vancomycin 3. Metabolic acidosis high anion gap, mild (likely lactic). 4. Anemia of chronic disease (Hgb 12.3, low RBC). 5. Alzheimers dementia, stage 3 6. 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 7. Hypothyroidism (on replacement therapy). 8. 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 9. COPD/asthma in acute exacerbation. 10. Chronic sacral pressure ulcer, healed scar, risk for recurrence. 11. BPH with urinary incontinence. 12. Failure to thrive / protein-calorie malnutrition risk. 13. History of COVID pneumonia treated at [facility] 07-31-25 to 08-07-25 Patient's daughter and power of cupola mechanic Tiesha [phone] bedside Rapid flu test negative COVID test neg Blood Cultures negative Discharge Disposition: Alf Facility Discharge Instruct/Medications Diet: Cardiac 2g Na,low cholest Activity: Light activity Follow Up/Referral: Follow up with the long-term Dr Medications: see list Scheduled Alendronate Sodium (Alendronate Sodium), 70 MG PO Q7D, (Reported) Canagliflozin (Invokana), 300 MG OR DAILY, (Reported) Donepezil Hydrochloride (Donepezil Hcl), 10 MG PO QPM, (Reported) Levothyroxine Sodium (Levothyroxine Sodium), 25 MCG PO QAM, (Reported) Liothyronine Sodium (Liothyronine Sodium), 5 MCG PO BID, (Reported) Lovastatin (Lovastatin), 1 TAB PO DAILY, (Reported) Megestrol Acetate (Megestrol Acetate), 40 MG PO DAILY, (Reported) Memantine Hydrochloride (Memantine HCl), 10 MG PO BID, (Reported) Omeprazole (Gnp Omeprazole), 20 MG PO QPM, (Reported) Pancreatic Enzymes (Creon), 12,000 UNT PO BIDWM, (Reported) Pioglitazone Hydrochloride (Pioglitazone Hcl), 30 MG OR QPM, (Reported) Rifaximin (Xifaxan), 1 TAB PO BID, (Reported) Tamsulosin Hcl (Tamsulosin Hcl), 0.4 MG PO QPM, (Reported) Trazodone Hcl (Trazodone Hcl), 50 MG PO QPM, (Reported) Miscellaneous Medications Multiple Vitamins W/ Minerals (Multivitamin), 1 TAB PO, (Reported) Pantoprazole Sodium Sesquihydr (Pantoprazole Sodium), 40 MG PO, (Reported) Discontinued Medications Metformin Hydrochloride (Metformin Hcl), 1,000 MG PO BID, (Reported) 35 (Time taken for discharge summary 35 mts) Discharge Statement: "Patient was advised to return to the ER or call 911 if any headaches, dizziness, shortness of breath, chest pain, abdominal pain, bleeding, fevers, or worsening of medical condition. Patient was counseled about treatment plan, medications, possible side effects, patientverbalized understanding. All questions were answered to the best of my ability. This discharge took greater then 30 minutes in planning, reviewing documentation, counseling the patient, and discussing with other team members." ASSESSMENT ASSESSMENT Hospital Course Uneventful Assessment Assessment/Plan 1. Severe sepsis with lactic acidosis lactate 4.8, tachycardia, metabolic acidosis, 2. Community-acquired pneumonia vs post-COVID pneumonia bilateral interstitial markings, persistent cough, recent COVID pneumonia. Zosyn vancomycin 3. Metabolic acidosis high anion gap, mild (likely lactic). 4. Anemia of chronic disease (Hgb 12.3, low RBC). 5. Alzheimers dementia, stage 3 6. 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 7. Hypothyroidism (on replacement therapy). 8. 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 9. COPD/asthma in acute exacerbation. 10. Chronic sacral pressure ulcer, healed scar, risk for recurrence. 11. BPH with urinary incontinence. 12. Failure to thrive / protein-calorie malnutrition risk. 13. History of COVID pneumonia treated at [facility] 07-31-25 to 08-07-25 Patient's daughter and power of cupola mechanic Tiesha [phone] bedside Rapid flu test negative COVID test neg Blood Cultures negative Date of Service: Aug 19, 2025 Billing Provider: MICHAEL LOWE MD Common Visit Codes: [id number] DISCH DAY >30min MICHAEL LOWE MD Aug 19, 2025 13:14
--- NOTE | 2025-08-19 21:40 | DVHPN2 ---
Progress Note - Dictate Date Seen: Aug 19, 2025 Medical Necessity Reason Pt with a Central, PICC or Fol: No Subjective Patient was seen and evaluated in follow up. No overnight events. Patient is resting in bed. Patient is pending SNF transfer, awaiting bed availability at [facility]. Telemetry reviewed. vital signs Vital Sign Date Time Temp Pulse Resp B/P (MAP) Pulse Ox O2 Delivery O2 Flow Rate FiO2 08/19/25 21:00 97.6 87 18 116/77 (90) 96 97.6 08/19/25 07:51 Room Air* 0 21 Total Intake and Output 08/18/25 08/18/25 08/19/25 15:00 23:00 07:00 Intake Total 100 ml 415 ml 550 ml Balance 100 ml 415 ml 550 ml medications Current Medications Medications Dose Ordered Sig/Alexandru Route Start Time Stop Time Status Last Admin Dose Admin Albuterol 2.5 mg Q4HPRN PRN NEB 08/13/25 01:45 Cancel Vancomycin HCl 0 ml @ 0 mls/hr UD IV 08/13/25 01:45 Piperacillin Sod/ Tazobactam Sod 100 ml @ 25 mls/hr Q8HR IV 08/13/25 06:00 08/19/25 13:58 25 MLS/HR Diagnostic Test (Pha) 1 strip IQ4HR 08/13/25 04:00 08/19/25 16:00 1 STRIP Insulin Human Regular IQ4HR SC 08/13/25 04:00 08/19/25 18:23 3 UNITS Dextrose 50 ml UD PRN IV 08/13/25 01:45 Ondansetron HCl 4 mg Q4HP PRN IV 08/13/25 02:30 Docusate Sodium 100 mg BIDPRN PRN PO 08/13/25 02:30 Multivitamins 1 tab DAILY PO 08/13/25 10:00 08/19/25 08:29 1 TAB Acetaminophen 650 mg Q6HP PRN PO 08/13/25 02:30 Morphine Sulfate 2 mg Q4HPRN PRN IV 08/13/25 02:30 Nitroglycerin 0.4 mg Q5MINP PRN SL 08/13/25 02:30 Morphine Sulfate 2 mg Q30M PRN IV 08/13/25 02:30 Pantoprazole Sodium 40 mg DAILY@0600 PO 08/13/25 06:00 08/19/25 06:03 40 MG Levothyroxine Sodium 25 mcg QAM PO 08/13/25 07:00 08/19/25 06:03 25 MCG Tamsulosin HCl 0.4 mg QPM PO 08/13/25 18:00 08/19/25 18:27 0.4 MG Donepezil HCl 10 mg QPM PO 08/13/25 18:00 08/19/25 18:27 10 MG Patient Own Medication 5 mcg BID PO 08/13/25 10:00 08/19/25 08:29 5 MCG Patient Own Medication 1 tab DAILY PO 08/13/25 10:00 08/19/25 08:30 1 TAB Metoprolol Succinate 25 mg DAILY PO 08/13/25 10:00 08/19/25 08:28 25 MG Rifaximin 550 mg BID PO 08/15/25 22:00 08/19/25 08:29 550 MG Nystatin 5 ml DAILY MT 08/16/25 10:00 08/19/25 08:27 5 ML Sodium Chloride 10 ml QSHIFT@10,22 IV 08/18/25 22:00 08/19/25 08:31 10 ML Vancomycin HCl 100 ml @ 200 mls/hr Q12H IV 08/19/25 05:00 08/19/25 17:00 200 MLS/HR objective GENERAL: Confused. No acute distress. EYES: PERRL, EOMI. Anicteric. HENT: Moist mucous membranes. LUNGS: Clear to auscultation bilaterally. CARDIOVASCULAR: Regular rate and rhythm. ABDOMEN: Soft, nontender and nondistended. EXTREMITIES: No edema. SKIN: Warm, dry. laboratory and microbiology Laboratory Tests 08/18/25 10:30 08/18/25 07:31 08/14/25 05:30 Test 08/14/25 05:30 Range/Units Serum Glucose 187 H 74-106 mg/dL Problem List Sinus tachycardia. Rule out structural heart disease. Hypertension. Dyslipidemia. COPD. Asthma . Type 2 diabetes mellitus. Thyroid disease. BPH. Urinary incontinence. Dementia. Wheelchair-bound. Assessment/Plan Continued all current supportive medical care. Metoprolol. Morphine for pain management. IV antibiotics as ordered. GI prophylactics. Nitro SL. Additional plan as per the hospital course. Plan discussed with: KATHIA Murillo MD Aug 19, 2025 21:40
[2025-08-20 01:00] VITALS: BP 104/56; PULSE 102; RESP 18; TEMP 97.9; O2SAT 98
[2025-08-20 05:00] VITALS: BP 100/65; PULSE 110; RESP 17; TEMP 97.9; O2SAT 98
[2025-08-20 08:00] VITALS: PULSE 100
--- NOTE | 2025-08-21 00:03 | DVHPN2 ---
Progress Note - Dictate Date Seen: Aug 20, 2025 Medical Necessity Reason Pt with a Central, PICC or Fol: No Subjective Patient was seen and evaluated in follow up. Patient has no new complaints at this time. Patient denies any cardiac symptoms. Patient is cardiac stable for discharge. Telemetry reviewed. vital signs Vital Sign Date Time Temp Pulse Resp B/P (MAP) Pulse Ox O2 Delivery O2 Flow Rate FiO2 08/20/25 09:14 104 120/70 08/20/25 08:00 Room Air* 0 21 08/20/25 05:00 97.9 17 98 97.9 medications Current Medications Medications Dose Ordered Sig/Alexandru Route Start Time Stop Time Status Last Admin Dose Admin Albuterol 2.5 mg Q4HPRN PRN NEB 08/13/25 01:45 Cancel objective GENERAL: Confused. No acute distress. EYES: PERRL, EOMI. Anicteric. HENT: Moist mucous membranes. LUNGS: Clear to auscultation bilaterally. CARDIOVASCULAR: Regular rate and rhythm. ABDOMEN: Soft, nontender and nondistended. EXTREMITIES: No edema. SKIN: Warm, dry. laboratory and microbiology Laboratory Tests 08/18/25 10:30 08/18/25 07:31 08/14/25 05:30 Test 08/14/25 05:30 Range/Units Serum Glucose 187 H 74-106 mg/dL Problem List Sinus tachycardia. Rule out structural heart disease. Hypertension. Dyslipidemia. COPD. Asthma . Type 2 diabetes mellitus. Thyroid disease. BPH. Urinary incontinence. Dementia. Wheelchair-bound. Assessment/Plan Continued all current supportive medical care. Metoprolol. Morphine for pain management. IV antibiotics as ordered. GI prophylactics. Nitro SL. Additional plan as per the hospital course. Plan discussed with: Patient KATHIA ELISE MD Aug 21, 2025 00:03
== END 2025-08-20 09:55 | DRG 871 ==
LOC: EDUNIT# 13:57 → EDBD 13:57 → ER 13:57 → OVERFLOW 08-13 02:27 → TELE-WESTW 08-13 16:06
PROVIDERS: ADMIT Family Medicine; ATTEND Family Medicine
PROC: 02HV33Z Insertion of Infusion Device into Superior Vena Cava, Percutaneous Approach (ICD-10-PCS; principal; 2025-08-18)
PROC: B548ZZA Ultrasonography of Superior Vena Cava, Guidance (ICD-10-PCS; 2025-08-18)
DX: A41.9 Sepsis, unspecified organism (principal); J18.9 Pneumonia, unspecified organism; E87.20 Acidosis, unspecified; J45.901 Unspecified asthma with (acute) exacerbation; J44.0 Chronic obstructive pulmonary disease with (acute) lower respiratory infection; E46 Unspecified protein-calorie malnutrition; J44.1 Chronic obstructive pulmonary disease with (acute) exacerbation; Z20.822 Contact with and (suspected) exposure to COVID-19; F02.80 Dementia in other diseases classified elsewhere, unspecified severity, without behavioral disturbance, psychotic disturbance, mood disturbance, and anxiety; E03.9 Hypothyroidism, unspecified; K74.60 Unspecified cirrhosis of liver; N40.1 Benign prostatic hyperplasia with lower urinary tract symptoms; R65.20 Severe sepsis without septic shock; D63.8 Anemia in other chronic diseases classified elsewhere; G30.9 Alzheimer's disease, unspecified; L89.159 Pressure ulcer of sacral region, unspecified stage; K86.89 Other specified diseases of pancreas; E78.00 Pure hypercholesterolemia, unspecified; I48.91 Unspecified atrial fibrillation; E11.9 Type 2 diabetes mellitus without complications; K76.82 Hepatic encephalopathy; N39.498 Other specified urinary incontinence; R62.7 Adult failure to thrive; I10 Essential (primary) hypertension; Z96.652 Presence of left artificial knee joint; Z79.899 Other long term (current) drug therapy; Z82.3 Family history of stroke; Z82.49 Family history of ischemic heart disease and other diseases of the circulatory system; Z79.01 Long term (current) use of anticoagulants; Z99.3 Dependence on wheelchair; Z79.4 Long term (current) use of insulin; Z90.49 Acquired absence of other specified parts of digestive tract; Z68.26 Body mass index [BMI] 26.0-26.9, adult; Z87.01 Personal history of pneumonia (recurrent); Z79.84 Long term (current) use of oral hypoglycemic drugs; Z88.1 Allergy status to other antibiotic agents; Z86.16 Personal history of COVID-19
CPT/HCPCS: 36415; 36569; 71045; 71250; 76937; 80048; 80053; 80061; 80202; 82565; 82962; 83036; 83605; 83735; 83880; 84443; 84484; 85025; 85379; 85610; 85730; 87040; 87426; 87804; 92610; 93005; 93306; 96365; 97110; 97116; 97163; 97530; G0378; J1815; J2543; J3490